=== PATIENT | female | born 1985 | race Caucasian/White ===

== ENCOUNTER 2017-11-09 13:37 | Emergency (ER) | payer OTHER ==
--- OUTSIDE RECORDS SUMMARY | 2017-11-09 14:11 | XMS REPORT ---
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 Payers Type Date Identification Numbers Payment Provider Subscriber Medicaid Expires: Policy Number: [id number] Medicaid ### Marisa Barboza 2016 >11 PayID: [id number] [address] [place] [address] Commercial Policy Number: [id number] Edy Gregg Barboza PayID: [id number] [address] [place] [address] Workers Compensation Effective: 2015 Policy Number: Juan Barboza [id number] Onset: 2015 PayID: [id number] Aleman [address] [place] [address] Problems Date Description Provider Status Onset: 09/14/2017 Contraception care Reece Leonardo PA Active Note: Nexplanon placement and subsequent immediate removal due to extreme pain Onset: 11/02/2017 Infectious mononucleosis Reece Leonardo PA Active Note: h/o Acute infection 2003 Social History Type Date Description Comments Lives With Alone STUDIO 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 Cigarette Use Never Smoked Cigarettes ETOH Use Occasionally consumes alcohol Recreational Drug Use Denies Drug Use Smoking Patient has never smoked Daily Caffeine Occasioanlly Currently Active Patient is currently sexually 2 [employer] active Grade 3rd year of college T [employer] 3 Allergies, Adverse Reactions, Alerts Date Description Reaction Status Severity Comments 02/24/2004 Ceftin active 02/24/2004 Sudafed active 09/27/2005 Serevent active Rash 01/26/2009 Shellfish-derived vomiting and active carries epipen for Products throat closing, this delayed but severe Medications Medication Date Status Form Strength Qnty SIG Indications Ordering Provider Work Note 11/09 Hx patient B27.Andres álvaro was seen Yvonne - in our MD Simran 11/13 office today. Out of work 11/09 thru 11/16/19 18 due to medical conditio n Doxycycline 10/31 Active Capsules 100mg 42caps one tab R53.83 Zeenat Hyclate twice a Yvonne day till MD Simran gone Meloxicam 07/13 Active Tablets 7.5mg 60tabs 1 by M79.1 Zeenat mouth Yvonne twice a MD Simran day for 2-3weeks then as needed Fluticasone 06/15 Active Suspensio 50mcg/Act 1units 1 spray 461.0 Zeenat n b/l Yvonne nostrils MD Simran twice a day, then may wean to 1 spray everyday , until sx resoluti on Proair HFA 04/12 Active Aerosol 108(90Base) 8.500gm 2 puffs J45.20 álvaro mcg/Act every 6 Yvonne hours as MD Simran needed wheezing /sob [june substitu te covered med] Cetirizine HCL 04/12 Active Tablets 10mg 90tabs 1 by Z11.8 Zeenat mouth Yvonne every MD Simran day Epinephrine 08/01 Active Solution 0.3mg/0.3ML 2units as Zeenat Auto-Inje needed Yvonne ct MD Simran Amitiza 10/03 Hx Capsules 24mcg 30caps 1 po up R14.0 Zeenat to tid Yvonne - [Samples MD Simran 10/31 [id number]] Cyclobenzaprine 09/22 Hx Tablets 5mg 14tabs 1/2 -1 M54.5 SUZANNE Chavez at Chanelle - bedtime CAMANDA MS 10/03 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 lasts for 8 hours Sulfamethoxazole 09/22 Hx Tablets 800-160mg 10tabs one tab N39.0 Kathy /Trimethoprim DS by mouth Chanelle - twice a Ruthie RN MS 10/03 day for 5 days Cephalexin 07/26 Hx Tablets 500mg 14tabs 1 by N39.0 Zeenat mouth Yvonne - two MD Simran 08/02 times a day Fluconazole 07/13 Hx Tablets 100mg 10tabs 1 by ZSelma Epperson mouth x1 Yvonne - MD Simran 07/17 Doxycycline 04/14 Hx Capsules 100mg 60caps one tab Shara Chavez Hyclate twice a Chanelle - day till C, RN MS 06/15 gone Doxycycline 04/12 Hx Capsules 100mg 60caps 1 cap by Shara Chavez Monohydrate mouth Chanelle - twice a C, RN MS 04/14 day Fluconazole 04/12 Hx Tablets 100mg 10tabs 1 by Shara Epperson mouth x1 Yvonne - MD Simran 06/15 Goodsense ALL 04/12 Hx Tablets 10mg 90tabs 1 by Shara Epperson, mouth Yvonne - every MD Simran Ciprofloxacin 11/29 Hx Tablets 500mg 20tabs 1 by S91.331A Zeenat, mouth Yvonne - twice a MD Simran 12/13 day total of 14days Amoxicillin 08/01 Hx Tablets 875mg 20tabs 1 by J01.00 Zeenat mouth Yvonne - twice a MD Simran Proventil HFA 08/01 Hx Aerosol 108(90Base) 6.700gm inhale 2 Zeenat mcg/Act puffs Yvonne - into the MD Simran 11/29 lungs every 6 hours Work Note 08/02 Hx pt not S53.132D Zeenat to Yvonne - perform MD Simran 08/31 massage x 1-2 wks Work Note 07/19 Hx patient S53.132A Zeenat, is out Yvonne - 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/02 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 due to medical reasons until evaluate d by orthoped ics Elbow Support 07/19 Hx Misc LEFT S53.132A Zeenat LEFT-RIGHT/Small /2015 elbow Yvonne -Medium - brace MD Simran 08/02 medial collater al ligament support/ strap/hi nge Dx L Elbow MCL sprain Naprosyn 07/12 Hx Tablets 500mg 60tabs 1 by S53.132A Zeenat mouth up Yvonne - to twice MD Simran 08/11 a day as needed Proair 06/04 Hx Aerosol 108(90Base) 1units 2 p four J45.20 Zeenat, Respiclick /2016 mcg/Act times a Yvonne - day as MD Simran 08/01 needed Epipen 2-Ankur 06/04 Hx Solution 0.3mg/0.3ML 2units prn Zeenat Auto-Inje Yvonne - ct MD Simran 08/01 Metronidazole 04/26 Hx Tablets 500mg 14tabs 1 by N76.0 Zeenat mouth Yvonne - every 12 MD Simran Macrobid 04/26 Hx Capsules 100mg 14caps 1 by N30.00 Zeenat, mouth Yvonne - twice a MD Simran Diflucan 04/26 Hx Tablets 100mg 2tabs 1 by N76.0 Zeenat mouth x1 Yvonne - today; MD Simran 05/03 in 1week Amoxicillin 01/06 Hx Tablets 500mg 4 by Diana01.00 Zeenat, mouth x Yvonne - 1 prior MD Simran 01/06 to procedur e Amoxicillin 01/06 Hx Tablets 500mg 30tabs 1 by Diana01.00 Zeenat, mouth Yvonne - three MD Simran 07/12 times day Amoxicillin 07/25 Hx Tablets 875mg 20tabs 1 by Diana01.00 Kathy mouth Chanelle - twice a C, RN MS 01/06 day COMPUTER ENGINEERING 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 Montelukast 07/25 Hx Tablets 10mg 30tabs 1 by Diana01.Louise Chavez Sodium mouth Chanelle - every C, RN MS 04/[address] COHNP [place] Fluticasone 04/25 Hx Suspensio 50mcg/Act 16gm 2 sprays Diana01.00 Zeenat, n in each Yvonne - nostril MD Simran 04/12 Amoxicillin/Clav 03/20 Hx Tablets 875-125mg 20tabs 1 by 461.0 Zeenat mouth Yvonne Potassium - twice a MD Simran Amoxicillin 02/25 Hx Tablets 500mg 30tabs 1 by 461.0 Zeenat mouth Yvonne - markos Khalil MD 04/25 times a day Fluticasone 11/05 Hx Suspensio 50mcg/Act 1units 1 spray 461.0 Johan n b/l Laurita - nostrils MD Alida 04/25 twice a day, then may wean to 1 spray everyday , until sx resoluti on Augmentin 11/05 Hx Tablets 875-125mg 20tabs 1 tab by Johan mouth Laurita - twice a MD Alida 02/25 day x days Azithromycin 10/31 Hx Tablets 250mg 1Pack 2 tabs 461.0 Zeenat day one Yvonne - and 1 MD Simran 10/04 daily till gone School Note 10/[address]0 Zeenat excuse Yvonne - 10/31Simran MD 03/26 11/01, 11/02, 11/03 Amoxicillin 05/02 Hx Tablets 875mg 20tabs 1 po bid Zeenat Yvonne Khalil MD 10/31 Epipen 2-Ankur 05/02 Hx Solution 0.3mg/0.3ML 2units as Zeenat Auto-Inje needed Yvonne - zoie Khalil MD 06/04 Proair HFA 05/02 Hx Aerosol 108(90Base) 1Can 2 p qid 493.00 Zeenat mcg/ac prn Yvonne Khalil MD 03/06 Methylphenidate 05/02 Hx Tablets 10mg 30tabs 1 po qam 314.00 Zeenat, HCL ER may take Yvonne Khalil MD 03/26 prn Lab Testing 05/25 Hx STD Testing HIV testing jose Santiago C, RN MS 06/04 serum COMPUTER ENGINEERING TECHNICIAN gravinde x(qualit ative) Diflucan 05/20 Hx Tablets 150mg 1tabs 1 po qd [place] Chanelle Hendricks RN MS 03/26 COMPUTER ENGINEERING TECHNICIAN Diflucan 12/30 Hx Tablets 150mg 1tabs one tab Zeenat po times Yvonne - one sergio Khalil MD 02/16 Meclizine HCL 07/08 Hx Tablets 25mg 30tabs 1 tab at 386.11 hs for Chanelle - 5-7 Ruthie RN MS 02/16 days. may continue as needed for vertigo. 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 dx muscle soreness /tendoni tis to arms Accupuncture 01/26 Hx Bilateral Eval and 719.43 Kathy, Arm Pain treat Chanelle - for Ruthie RN MS 02/16 tendonit is type pain to bilatera l arms Arm Strap 01/26 Hx DX 2units bilatera 719.43 Tendonitis l arms Chanelle - (Disp 1 Ruthie RN MS 02/16 splint each arm) Cock Up Wrist 01/20 Hx Bilateral wear 719.43 , Splints during Chanelle - the day Ruthie RN MS 02/16 dx tendonit is Accupuncture 01/20 Hx 719.43 Chanelle Hendricks RN MS 01/26 Massage therapy 01/20 Hx 719.43 Chanelle Hendricks RN MS 01/26 Bertha 12/05 Hx Tablets 3-0.02mg 3pks 1 po qd Chanelle Hendricks RN MS 02/16 Nasonex 11/05 Hx Suspensio 50mcg/Act Samples 2 sprays 465.9 n each Noemí Oliveratrmaldonado LAMBERT 01/26 qd Proair HFA 11/05 Hx Aerosol 108(90Base) 8.500gm 2 P qid 493.00 prn Yvonne Khalil MD 05/02 Advair HFA 11/05 Hx Aerosol 115-21mcg/a Sample 2 puffs 493.00 c qd Noemí Olivera MD 02/16 Singulair 11/05 Hx Tablets 10mg Samples 1 po qd 493.00 Trabout Noemí Olivera MD 01/26 Bactrim DS 09/30 Hx Tablets 800-160mg 599.0 Chanelle Hendrikcs RN MS 09/30 Cipro 09/30 Hx Tablets 250mg 6tabs 1 po bid 599.0 x 3 days Chanelle Hendricks RN MS 11/05 Amoxicillin 01/09 Hx Tablets 875mg 20tabs 1 po bid 465.9 Kathy Chanelle Hendricks RN MS 01/19 Robitussin ac 01/09 Hx 120cc 1-2 tsp 465.9 q 4 Chanelle - kacie Hendricks RN MS 01/19 needed for cough Fexofenadine HCL 07/08 Hx Tablets 180mg 30tabs 1 po qd 477.0 prn Yvonne Khalil MD 01/09 Nortriptyline 04/29 Hx Capsules 10mg 30caps 1-2 po 524.60 , qhs Yvonne Khalil MD 01/09 Epipen 2-Ankur 01/05 Hx Device 1:1000 2units prn Zeenat Yvonne Khalil MD 05/02 Zoloft 11/28 Hx Tablets 50mg 30tabs 1 PO qd Zeenat Yvonne Khalil MD 01/09 Singulair 10/11 Hx Tablets 10mg 30tabs 1 PO QHS 388.70 Kathy Chanelle Hendricks RN MS 01/09 Singulair 10/11 Hx Tablets 10mg 30tabs Take 1 Tablet Chanelle Hendricks RN MS 07/08 Bedtime Rhinocort Aqua 10/11 Hx Suspensio 32mcg/Act 1Bottle one Zeenat n spray Yvonne Khalil MD 01/09 nares q am Cortisporin 08/23 Hx Solution 1% Otic 1Bottle 4 GTT 380.10 Zeenat qid X 1 Yvonne Khalil MD 01/09 Flagyl 06/22 Hx Tablets 500mg 21tabs 1 Bidx7 Days Chanelle Hendricks RN MS 06/29 Zoloft 02/20 Hx Tablets 25mg 1 po qd Noemí Olivera MD 11/28 Robitussin A-c 12/19 Hx Syrup 100mg;10mg/ 120ml 10 ML 079.99 Zeenat 5ML qid prn Yvonne Khalil MD 02/20 School Note 12/19 Hx Please 079.99 Zeenat Excuse Yvonne Khalil MD 02/20 Z-Ankur 12/16 Hx Tablets 250mg 1tabs as Dir 466.0 Zeenat Yvonne Khalil MD 02/20 Bactrim DS 09/28 Hx Tablets 160mg;800 14tabs 1 PO bid mg Chanelle Hendricks RN MS 11/04 Mary D 07/29 Hx Tablets 60mg;120 mg 60tabs One bid Zeenat prn Yvonne Khalil MD 02/20 Albuterol 07/29 Hx Aerosol 90mcg/Dose 1Can 2 Puffs Zeenat Inhalation qid prn Yvonne Khalil MD 11/06 Ortho Tri-Cyclen 08/11 Hx Tablets 0.025mg;0.1 1Pack 1 po qd Zeenat, 8 mg Yvonne Khalil MD 12/05 Nasonex 02/23 Hx Suspensio 50mcg 1units 2 Zeenat, Intranasal [place] n Inhalati Yvonne - on Daily MD Simran 02/20 Zoloft Hx Tablets 50mg 90tabs 1 po qd Trab Noemí Olivera MD 02/20 Medications Administered in Office Medication Date Status Form Strength Qnty SIG Indications Ordering Provider PPD Administered Injection Nurses 011 Schedule Raquel Depo Medrol 40 Administered Injection Macaálvaro, [place] 006 Yvonne Khalil MD Immunizations CPT Code Status Date Vaccine Lot # [id number] Given 11/26/2016 Tdap (Adacel) Ages 7 And Above Only 97302 Given 09/24/2007 Tdap (Adacel) Ages 7 And Above Only 14811 Given 09/24/2007 Tdap (Adacel) Ages 7 And Above Only [id number] 08305 Given 07/28/2003 MMR Virus Immunization 02990 Given 12/03/2001 Afluria Or Fluvirin Flu Vac Intramuscular 92440 Given 05/09/2000 Hepatitis B Vac Ped/Adolescent 3 Dose Schedule 35260 Given 11/03/1999 Hepatitis B Vac Ped/Adolescent 3 Dose Schedule Vital Signs Date Vital Result Comment 11/09/2017 Weight 157.50 lb Heart Rate 80 /min BP Systolic 108 mmHg BP Diastolic 70 mmHg Height 65.75 inches 5'5.75" BMI (Body Mass Index) 25.6 kg/m2 10/31/2017 Body Temperature 99.0 F Weight 157.00 lb Height 65.75 inches 5'5.75" BMI (Body Mass Index) 25.5 kg/m2 10/03/2017 Weight 158.38 lb Heart Rate 84 /min BP Systolic 115 mmHg BP Diastolic 72 mmHg Height 65.75 inches 5'5.75" BMI (Body Mass Index) 25.8 kg/m2 Urine Dipstick - Blood NEGATIVE Urine Dipstick - Protein NEGATIVE Urine Dipstick - Glucose NEGATIVE Urine Dipstick - Leukocytes NEGATIVE 09/22/2017 Body Temperature 98.3 F Weight 162.12 lb Heart Rate 70 /min BP Systolic 117 mmHg BP Diastolic 82 mmHg Height 65.75 inches 5'5.75" BMI (Body Mass Index) 26.4 kg/m2 09/19/2017 Body Temperature 97.4 F Weight 162.25 lb Heart Rate 81 /min BP Systolic 125 mmHg BP Diastolic 81 mmHg Height 65.75 inches 5'5.75" BMI (Body Mass Index) 26.4 kg/m2 08/23/2017 Weight 167.38 lb Heart Rate 73 /min BP Systolic 110 mmHg BP Diastolic 73 mmHg Height 65.75 inches 5'5.75" BMI (Body Mass Index) 27.2 kg/m2 08/01/2017 Weight 164.12 lb Heart Rate 65 /min BP Systolic 110 mmHg BP Diastolic 63 mmHg Height 65.75 inches 5'5.75" BMI (Body Mass Index) 26.7 kg/m2 Urine Dipstick - Blood NEGATIVE Urine Dipstick - Protein NEGATIVE Urine Dipstick - Glucose NEGATIVE Urine Dipstick - Leukocytes NEGATIVE 07/26/2017 Weight 165.25 lb Heart Rate 64 /min BP Systolic 122 mmHg BP Diastolic 82 mmHg Height 65.75 inches 5'5.75" BMI (Body Mass Index) 26.9 kg/m2 Urine Dipstick - Blood NEGATIVE Urine Dipstick - Protein NEGATIVE Urine Dipstick - Glucose NEGATIVE Urine Dipstick - Leukocytes NEGATIVE 07/13/2017 Weight 158.50 lb Heart Rate 80 /min BP Systolic 104 mmHg BP Diastolic 70 mmHg Height 65.75 inches 5'5.75" BMI (Body Mass Index) 25.8 kg/m2 04/12/2017 Weight 160.12 lb Heart Rate 78 /min BP Systolic 120 mmHg BP Diastolic 75 mmHg Height 65.75 inches 5'5.75" BMI (Body Mass Index) 26.0 kg/m2 11/29/2016 Body Temperature 99.9 F Weight 160.00 lb Heart Rate 88 /min BP Systolic 138 mmHg BP Diastolic 88 mmHg Height 65.75 inches 5'5.75" BMI (Body Mass Index) 26.0 kg/m2 08/01/2016 Body Temperature 98.7 F Weight 155.00 lb Heart Rate 72 /min BP Systolic 108 mmHg BP Diastolic 60 mmHg Height 65.75 inches 5'5.75" BMI (Body Mass Index) 25.2 kg/m2 08/25/2015 Weight 159.00 lb Heart Rate 79 /min BP Systolic 105 mmHg BP Diastolic 69 mmHg Height 65.75 inches 5'5.75" BMI (Body Mass Index) 25.9 kg/m2 08/03/2015 Weight 157.00 lb Heart Rate 76 /min BP Systolic 122 mmHg BP Diastolic 64 mmHg Height 65.75 inches 5'5.75" BMI (Body Mass Index) 25.5 kg/m2 07/20/2015 Weight 158.38 lb Height 65.75 inches 5'5.75" BMI (Body Mass Index) 25.8 kg/m2 07/13/2015 Weight 155.00 lb Heart Rate 73 /min BP Systolic 116 mmHg BP Diastolic 72 mmHg Height 65.75 inches 5'5.75" BMI (Body Mass Index) 25.2 kg/m2 06/05/2015 Body Temperature 99.2 F Weight 158.00 lb Heart Rate 80 /min BP Systolic 128 mmHg BP Diastolic 74 mmHg Height 65.75 inches 5'5.75" BMI (Body Mass Index) 25.7 kg/m2 04/27/2015 Body Temperature 98.6 F Weight 158.00 lb Heart Rate 71 /min BP Systolic 115 mmHg BP Diastolic 68 mmHg Height 65.75 inches 5'5.75" BMI (Body Mass Index) 25.7 kg/m2 Urine Dipstick - Blood NEGATIVE Urine Dipstick - Protein NEGATIVE Urine Dipstick - Glucose NEGATIVE Urine Dipstick - Leukocytes NEGATIVE 01/06/2015 Body Temperature 100.4 F Weight 153.00 lb Heart Rate 88 /min BP Systolic 110 mmHg BP Diastolic 58 mmHg Height 65.75 inches 5'5.75" BMI (Body Mass Index) 24.9 kg/m2 07/25/2014 Body Temperature 99.8 F Weight 159.00 lb Heart Rate 76 /min BP Systolic 109 mmHg BP Diastolic 73 mmHg Height 65.75 inches 5'5.75" BMI (Body Mass Index) 25.9 kg/m2 06/17/2014 Weight 158.00 lb Heart Rate 72 /min BP Systolic 115 mmHg BP Diastolic 69 mmHg Height 65.75 inches 5'5.75" BMI (Body Mass Index) 25.7 kg/m2 04/25/2014 Body Temperature 99.5 F Weight 159.00 lb Heart Rate 76 /min BP Systolic 120 mmHg BP Diastolic 74 mmHg Height 65.75 inches 5'5.75" BMI (Body Mass Index) 25.9 kg/m2 02/25/2014 Body Temperature 98.9 F Weight 171.00 lb Heart Rate 68 /min BP Systolic 120 mmHg BP Diastolic 66 mmHg Height 65.75 inches 5'5.75" BMI (Body Mass Index) 27.8 kg/m2 11/05/2013 Body Temperature 98.5 F Weight 162.00 lb Heart Rate 83 /min BP Systolic 109 mmHg BP Diastolic 69 mmHg Height 65.75 inches 5'5.75" BMI (Body Mass Index) 26.3 kg/m2 08/15/2013 Body Temperature 98.4 F Weight 163.00 lb Heart Rate 69 /min BP Systolic 112 mmHg BP Diastolic 72 mmHg 03/06/2013 Body Temperature 99.7 F Weight 159.00 lb Heart Rate 124 /min BP Systolic 115 mmHg BP Diastolic 74 mmHg 02/04/2013 Heart Rate 89 /min BP Systolic 146 mmHg BP Diastolic 79 mmHg 11/15/2012 Body Temperature 97.1 F Weight 165.00 lb Heart Rate 74 /min BP Systolic 130 mmHg BP Diastolic 81 mmHg 10/04/2012 Body Temperature 97.5 F Weight 165.00 lb Heart Rate 82 /min BP Systolic 121 mmHg BP Diastolic 74 mmHg 03/26/2012 Body Temperature 99.1 F Weight 166.00 lb Heart Rate 80 /min BP Systolic 112 mmHg BP Diastolic 60 mmHg Height 65.75 inches 5'5.75" BMI (Body Mass Index) 27.0 kg/m2 11/01/2011 Body Temperature 98.0 F Weight 163.00 lb Heart Rate 72 /min BP Systolic 110 mmHg BP Diastolic 60 mmHg Height 65.75 inches 5'5.75" BMI (Body Mass Index) 26.5 kg/m2 05/03/2011 Weight 160.00 lb Heart Rate 76 /min BP Systolic 110 mmHg BP Diastolic 64 mmHg Height 65.75 inches 5'5.75" BMI (Body Mass Index) 26.0 kg/m2 05/17/2010 Weight 155.00 lb Heart Rate 73 /min BP Systolic 119 mmHg BP Diastolic 69 mmHg 02/16/2010 Weight 151.00 lb Heart Rate 88 /min BP Systolic 108 mmHg BP Diastolic 56 mmHg 07/08/2009 Weight 141.00 lb Heart Rate 69 /min BP Systolic 106 mmHg BP Diastolic 65 mmHg 04/29/2009 Weight 143.00 lb Heart Rate 77 /min BP Systolic 118 mmHg BP Diastolic 78 mmHg 01/26/2009 Weight 148.00 lb Heart Rate 77 /min BP Systolic 117 mmHg BP Diastolic 65 mmHg 01/20/2009 Weight 148.00 lb Heart Rate 79 /min BP Systolic 108 mmHg BP Diastolic 62 mmHg 11/05/2008 Body Temperature 98.1 F Weight 147.00 lb Heart Rate 72 /min BP Systolic 113 mmHg BP Diastolic 74 mmHg 09/30/2008 Body Temperature 97.0 F Weight 147.00 lb Heart Rate 67 /min BP Systolic 109 mmHg BP Diastolic 66 mmHg Respiratory Rate 20 /min 01/10/2008 Weight 153.00 lb Heart Rate 77 /min BP Systolic 120 mmHg BP Diastolic 70 mmHg Height 65.75 inches 5'5.75"With Shoes BMI (Body Mass Index) 24.9 kg/m2 07/09/2007 Body Temperature 97.0 F Weight 165.00 lb Heart Rate 58 /min BP Systolic 114 mmHg BP Diastolic 58 mmHg Height 65.75 inches 5'5.75"With Shoes BMI (Body Mass Index) 26.8 kg/m2 04/30/2007 Body Temperature 97.5 F Weight 168.00 lb Heart Rate 68 /min BP Systolic 116 mmHg BP Diastolic 73 mmHg Height 65.75 inches 5'5.75"With Shoes BMI (Body Mass Index) 27.3 kg/m2 Urine Dipstick - Blood NEGATIVE Urine Dipstick - Protein NEGATIVE Urine Dipstick - Glucose NEGATIVE 10/11/2006 Body Temperature 97.6 F Weight 162.00 lb Heart Rate 82 /min BP Systolic 112 mmHg BP Diastolic 74 mmHg Respiratory Rate 22 /min Height 65.75 inches 5'5.75"With Shoes BMI (Body Mass Index) 26.3 kg/m2 08/23/2006 Weight 162.00 lb Heart Rate 74 /min BP Systolic 110 mmHg BP Diastolic 70 mmHg Height 65.75 inches 5'5.75"With Shoes BMI (Body Mass Index) 26.3 kg/m2 06/19/2006 Weight 162.00 lb Heart Rate 88 /min BP Systolic 140 mmHg BP Diastolic 60 mmHg Height 65.75 inches 5'5.75"With Shoes BMI (Body Mass Index) 26.3 kg/m2 02/20/2006 Weight 167.00 lb Heart Rate 60 /min BP Systolic 104 mmHg BP Diastolic 60 mmHg Height 65.75 inches 5'5.75"With Shoes BMI (Body Mass Index) 27.2 kg/m2 Urine Dipstick - Blood NEGATIVE Urine Dipstick - Protein NEGATIVE Urine Dipstick - Glucose NEGATIVE 12/19/2005 Body Temperature 100.3 F Weight 163.00 lb Heart Rate 120 /min BP Systolic 116 mmHg BP Diastolic 60 mmHg 12/16/2005 Body Temperature 97.7 F Weight 164.00 lb Heart Rate 80 /min BP Systolic 120 mmHg BP Diastolic 66 mmHg 11/04/2005 Weight 167.00 lb Heart Rate 76 /min BP Systolic 118 mmHg BP Diastolic 72 mmHg 09/27/2005 Body Temperature 97.9 F Weight 173.00 lb Heart Rate 80 /min BP Systolic 132 mmHg BP Diastolic 70 mmHg 07/29/2005 Weight 178.00 lb Heart Rate 60 /min BP Systolic 118 mmHg BP Diastolic 66 mmHg Height 65 inches 5'5" BMI (Body Mass Index) 29.6 kg/m2 02/24/2004 Urine Dipstick - Blood NEGATIVE Urine Dipstick - Protein NEGATIVE Urine Dipstick - Glucose NEGATIVE 02/24/2004 Weight 161.00 lb Weight Percentile 93rd Heart Rate 86 /min BP Systolic 118 mmHg BP Diastolic 72 mmHg Results Test Date Test Result H/L Range Note Babesia M AB Igg Igm -RL 10/31/2017 Babesia Microti Igg < 1:16 1, 2 Babesia Microti Igm 1:20 1, 3 Ebv Evaluation -RL 10/31/2017 Ebv Vca Igg @ NEGATIVE (Neg) 1 Ebv Vca Igm @ POSITIVE (Neg) 1, 4 Ebv Early Ag Igg @ NEGATIVE (Neg) 1 Ebv Nuclear Ag Igg @ POSITIVE (Neg) 1, 5 Lyme Igm/Igg AB -RL 10/31/2017 Lyme Igm/Igg AB @ NEGATIVE (Neg) 1, 6 E Chaffeensis Abs 10/31/2017 E Chaffeensis Igg <1:64 1, 7 E Chaffeensis Igm < 1:16 1, 8 Laboratory test finding 10/31/2017 Monospot Negative Negative 1 Comprehensive Met Panel-FCM 10/31/2017 Sodium 138 mmol/L 135-146 1, 9 Potassium 5.6 mmol/L High 3.5-5.2 1 Chloride# 102 mmol/L 97-110 1, 10 Carbon Dioxide 26 mmol/L 24-34 1 Glucose 85 mg/dL 70-105 1 BUN 9 mg/dL 6-26 1 Creatinine 0.6 mg/dL 0.5-1.4 1 Calcium 9.7 mg/dL 8.5-10.2 1 Total Protein 7.8 g/dL 6.0-8.0 1 Albumin 4.8 g/dL 3.6-4.9 1 Globulin 3.0 g/dL 2.0-3.5 1 A/G Ratio 1.6 Ratio 1.0-2.2 1 Total Bilirubin 0.5 mg/dL 0.1-1.3 1 Alkaline Phosphatase 30 U/L 24-140 1 Alt 14 U/L 3-42 1 Ast 16 U/L 8-42 1 Tory Egfr >60 >60 1, 11 Non Tory Egfr >60 >60 1, 12 Anion Gap 10 mmol/L 5-15 1, 13 Laboratory test finding 10/31/2017 1 Strep Screen (In-House) neg Negative Laboratory test finding 08/23/2017 [facility] Pap SEE NOTE 14 Affirm 08/23/2017 Trichomonas Vaginalis Negative Negative Gardnerella Vaginalis Negative Negative Corin Species Negative Negative GC/Chlamydia By Dna Probe 08/23/2017 Chlamydia by Dna Probe NEGATIVE Negative GC by Dna Probe NEGATIVE Negative HIV Combo By Eia 08/01/2017 [employer] HIV Combo NON REACTIVE Non Reactive 1 Affirm 08/01/2017 Trichomonas Vaginalis Negative Negative 1 Gardnerella Vaginalis Negative Negative 1 Corin Species Negative Negative 1 Treponema 08/01/2017 Treponema Igg/Igm NEGATIVE (Neg) 1, 15 Igg/Igm-RL @ Laboratory test 07/26/2017 Urine Culture Microbiology res 16 finding <SEE NOTE> GC/Chlamydia By Dna 07/26/2017 Chlamydia by Dna NEGATIVE Negative Probe Probe GC by Dna Probe NEGATIVE Negative Laboratory test 07/26/2017 HCG,Quant Preg <1 mU/mL 17 finding Laboratory test 08/15/2013 Urine Culture Microbiology res <SEE 18 finding NOTE> Laboratory test 05/03/2011 [facility] Pap SEE NOTE 19 finding Laboratory test 05/03/2011 TSH 1.19 uIU/mL 0.34-5.60 1 finding CBC With Auto Diff 05/03/2011 WBC 8.5 K/uL 4.1-11.0 1 RBC 3.83 M/uL Low 4.00-5.40 1 Hemoglobin 12.7 gm/dL 12.0-16.0 1 Hematocrit 37.3 % 36.0-47.0 1 MCV 97.4 fL High 80.0-97.0 1 MCH 33.2 pg High 27.0-32.0 1 MCHC 34.1 g/dL 32.0-36.0 1 RDW 12.9 % 11.5-14.5 1 PLT Count 286 K/ul 140-400 1 Neutrophil 67.9 % 35.0-75.0 1 Lymphocyte 20.4 % 16.0-52.0 1 Monocyte 8.3 % 2.0-10.0 1 Eosinophil 2.7 % 0.0-5.0 1 Basophil 0.7 % 0.0-4.0 1 Abs Neutrophils 5.8 K/uL 2.1-8.0 1 Abs Lymphocytes 1.7 K/uL 0.8-5.5 1 Abs Monocytes 0.7 K/uL 0.1-1.0 1 Abs Eosinophils 0.2 K/uL 0.0-0.5 1 Abs Basophils 0.1 K/uL 0.0-0.3 1 GC/Chlamydia By Dna Probe 05/03/2011 Chlamydia by Dna Probe NEGATIVE Negative 1 GC by Dna Probe NEGATIVE Negative 1 Laboratory test finding 05/03/2011 HIV 1/2 AB NEGATIVE (Neg) 1, 20 Laboratory test finding 05/17/2010 GC by Dna Probe NEGATIVE Negative 21 Chlamydia by Dna Probe Negative Negative 21 Laboratory test finding 05/17/2010 [facility] Pap SEE NOTE 21, 22 Stool Panel 10/21/2009 Ova And Parasites - [place] (SEE NOTE) 23, 24 Giardia Antigen-[place] (SEE NOTE) 23, 25 Culture (Stool) Enteric 10/21/2009 Enteric Pathogen Culture - (SEE NOTE) 23, 26 Pathog [place] Specimen Description - [place] N/A 23 Special Requests - [place] N/A 23 Result - [place] N/A 23 Report Status - [place] N/A 23 C Diff Toxin B/PCR -LA 10/21/2009 C Diff Toxin B/PCR -[place] (SEE NOTE) 23 , 27 Specimen Description - [place] N/A 23 Special Requests - [place] N/A 23 Result - [place] N/A 23 Report Status - [place] N/A 23 Celiac Disease Panel -LA 07/09/2009 Gliadin Peptide Iga 4 units 0-19.999 28 Gliadin Peptide Igg 3 units 0-19.999 29 Transglutaminase Iga -LA 6 units 0-19.999 30 Transglutaminase Igg -LA 3 units 0-19.999 31 Iga - [place] 294 mg/dL 71-374 CBC With Auto Diff 07/08/2009 WBC 4.3 K/ul 4.0-10.9 32 RBC 3.84 M/ul Low 4.20-5.40 32 Hemoglobin 12.6 GM/dl 12.5-16.0 32 Hematocrit 36.3 % 36.0-47.0 32 MCV 94.4 FL 80.0-97.0 32 MCH 32.8 pg High 27.0-31.0 32 MCHC 34.7 g/dL 32.0-36.0 32 RDW 12.9 % 11.5-14.5 32 Platelet Count 227 K/ul 140-440 32 Neutrophils 46.3 % Low 50-70 32 Lymphocytes 37.1 % 20-44 32 Monocytes 7.8 % 2-9 32 Eosinophil 7.9 % High 0-4 32 Basophil 0.9 % 0-2 32 Absolute Neutrophils 2.0 K/ul Low 2.05-7.63 32 Absolute Lymphocytes 1.6 K/ul 0.8-4.8 32 Absolute Monocytes 0.3 K/ul 0.1-1.0 32 Absolute Eosinophils 0.3 K/ul 0.1-0.5 32 Absolute Basophils 0.0 K/ul 0.0-0.3 32 Hematology Comment (Comm2) N/A 32 Basic (BMP) 07/08/2009 Sodium 142 mmol/L 135-144 32 Potassium 5.4 mmol/L High 3.6-5.2 32, 33 Chloride 105 mmol/L 97-110 32 Carbon Dioxide 30 mmol/L 23-32 32 Glucose 91 mg/dL 70-105 32 BUN 5 mg/dL Low 6-22 32 Creatinine 0.7 mg/dL 0.5-1.3 32 BUN/CR 7 Ratio 32 Anion Gap 12 mmol/L 8-16 32 Calcium 10.0 mg/dL 8.6-10.2 32 GFR Calculation > 60 mL/min 60-175 32, 34 GFR For > 60 mL/min 60-175 32, 35 Laboratory test finding 07/08/2009 Lipase 24 U/L 22-51 32 Amylase 56 U/L 36-128 32 Magnesium 2.1 mg/dL 1.8-2.5 32 CBC With Auto Diff 04/29/2009 WBC 4.6 K/ul 4.0-10.9 36 RBC 3.89 M/ul Low 4.20-5.40 36 Hemoglobin 12.6 GM/dl 12.5-16.0 36 Hematocrit 36.9 % 36.0-47.0 36 MCV 95.0 FL 80.0-97.0 36 MCH 32.4 pg High 27.0-31.0 36 MCHC 34.1 g/dL 32.0-36.0 36 RDW 12.8 % 11.5-14.5 36 Platelet Count 234 K/ul 140-440 36 Neutrophils 42.4 % Low 50-70 36 Lymphocytes 40.5 % 20-44 36 Monocytes 7.6 % 2-9 36 Eosinophil 9.1 % High 0-4 36 Basophil 0.4 % 0-2 36 Absolute Neutrophils 2.0 K/ul Low 2.05-7.63 36 Absolute Lymphocytes 1.9 K/ul 0.8-4.8 36 Absolute Monocytes 0.3 K/ul 0.1-1.0 36 Absolute Eosinophils 0.4 K/ul 0.1-0.5 36 Absolute Basophils 0.0 K/ul 0.0-0.3 36 Hematology Comment (Comm2) N/A 36 Laboratory test finding 04/29/2009 TSH 1.12 uIU/ml 0.34-5.60 36 Iron Panel 04/29/2009 Iron, Total 162 g/dL 28-170 36 Transferrin 287 mg/dL 192-382 36 Tibc (Calc) 402 g/dL 261-478 36 % Saturation (Calc) 40.3 % 13.0-45.0 36 Laboratory test finding 04/29/2009 Vitamin D, 25 Hydroxy 60 ng/mL 31-100 36 Food Allergy Panel 04/29/2009 Peanut Conc 0.100 36 Peanut Class 1 CLASS 36 Soybean Conc 0.060 36 Soybean Class 0/1 CLASS CLASS 36 Milk Conc 0.230 36 Milk Class 2 CLASS 36 Redwood Conc 0.200 36 Redwood Class 2 CLASS 36 Shrimp Conc <0.05 36 Shrimp Class 0 CLASS 36 Egg Whole Conc 0.120 36 Egg Whole Class 1 CLASS 36 Tomato Conc <0.05 36 Tomato Class 0 CLASS 36 Wheat Conc 0.160 36 Wheat Class 2 CLASS 36 Chocolate Conc <0.05 36 Chocolate Class 0 CLASS 36 Chester Conc <0.05 36 Chester Class 0 CLASS 36 Basic (BMP) 04/29/2009 Sodium 142 mmol/L 135-144 36 Potassium 4.1 mmol/L 3.6-5.2 36 Chloride 104 mmol/L 97-110 36 Carbon Dioxide 27 mmol/L 23-32 36 Glucose 79 mg/dL 70-105 36 BUN 4 mg/dL Low 6-22 36 Creatinine 0.6 mg/dL 0.5-1.3 36 BUN/CR 7 Ratio 36 Anion Gap 15 mmol/L 8-16 36 Calcium 9.9 mg/dL 8.6-10.2 36 GFR Calculation > 60 mL/min 60-175 36, 37 GFR For > 60 mL/min 60-175 36, 38 Laboratory test finding 04/29/2009 Hemoglobin A1c 5.7 % 4.1-6.5 36 Allergy Interpretation SEE NOTE 36, 39 Laboratory test finding 01/26/2009 Surepath Pap - LA (SEE NOTE) 40, 41 Chlamydia And GC 01/26/2009 Chlamydia By Dna NEGATIVE Negative 40 Probe GC By Dna Probe NEGATIVE Negative 40 CBC With Auto Diff 04/30/2007 WBC 6.4 K/ul 4.0-10.9 42 RBC 4.17 M/ul Low 4.20-5.40 42 Hemoglobin 13.4 GM/dl 12.5-16.0 42 Hematocrit 39.4 % 36.0-47.0 42 MCV 94.5 FL 80.0-97.0 42 MCH 32.1 pg High 27.0-31.0 42 MCHC 33.9 g/dL 32.0-36.0 42 RDW 11.4 % Low 11.5-14.5 42 Platelet Count 300 K/ul 140-440 42 Neutrophils 47.2 % Low 50-70 42 Lymphocytes 37.3 % 20-44 42 Monocytes 7.2 % 2-9 42 Eosinophil 8.3 % High 0-4 42 Basophil 0.0 % 0-2 42 Absolute Neutrophils 3.0 K/ul 2.05-7.63 42 Absolute Lymphocytes 2.4 K/ul 0.8-4.8 42 Absolute Monocytes 0.5 K/ul 0.1-1.0 42 Absolute Eosinophils 0.5 K/ul 0.1-0.5 42 Absolute Basophils 0.0 K/ul Low 0.1-0.3 42 CMP 04/30/2007 Sodium 138 mmol/L 135-144 42 Potassium 4.3 mmol/L 3.6-5.2 42 Chloride 102 mmol/L 97-110 42 Carbon Dioxide 27 mmol/L 23-33 42 Glucose 94 mg/dL 70-105 42 BUN 6 mg/dL 6-22 42 Creatinine 0.5 mg/dL 0.5-1.3 42 BUN/CR 12 Ratio 12.0-20.0 42 Calcium 9.7 mg/dL 8.6-10.2 42 Total Protein 7.4 g/dL 5.8-7.8 42 Albumin 4.2 g/dL 3.5-4.8 42 Globulin 3.2 g/dL 2.0-3.5 42 A/G Ratio 1.3 Ratio 1.0-2.2 42 Total Bilirubin 0.6 mg/dL 0.3-1.2 42 Alkaline Phosphatase 30 U/L 24-140 42 Alt 21 U/L 4-45 42 Ast 27 U/L 12-40 42 Anion Gap 13 mmol/L 8-16 42 GFR Calculation > 60 mL/min 42, 43 GFR For > 60 mL/min 42, 44 Laboratory test 04/30/2007 TSH 1.04 uIU/ml 0.34-5.60 42 finding Laboratory test 02/20/2006 Papsmear, Thinprep SEE REFERENCE LA 45 finding - LA <SEE NOTE> Chlamydia And GC 02/20/2006 GC By Dna Probe NEGATIVE Negative Chlamydia By Dna Probe NEGATIVE Negative CBC With Auto Diff 12/19/2005 WBC 6.1 K/ul 4.0-10.9 RBC 3.96 M/ul Low 4.20-5.40 Hemoglobin 12.5 GM/dl 12.5-16.0 Hematocrit 36.2 % 36.0-47.0 MCV 91.2 FL 80.0-97.0 MCH 31.5 pg High 27.0-31.0 MCHC 34.5 g/dL 32.0-36.0 RDW 12.2 % 11.5-14.5 Platelet Count 276 K/ul 140-440 Diff For Manual CBC 12/19/2005 Band 1 % Low 2-6 Neutrophil 81 % High 50-70 Lymphocyte 9 % Low 20-44 Monocyte 5 % 2-9 Eosinophil 3 % 0-4 Basophil 1 % 0-2 Platelet Estimate NORMAL RBC Morphology NORMAL Urinalysis -RL 09/27/2005 Color -LA YELLOW Appearance -LA HAZY Spec Grav Urine 1.010 (1.003-1.030) PH Urine -LA 6 (5.0-7.5) Leukocyte Esterase -LA 2+ (Neg) Nitrite -LA POSITIVE (Neg) Protein Urine-LA NEGATIVE (Neg) Glucose Urine -LA NEGATIVE (Neg) Ketone Urine -LA NEGATIVE (Neg) Urobilinogen -LA NORMAL (Norm) Bilirubin Urine -LA NEGATIVE (Neg) Blood Urine -LA TRACE (Neg) Urine Microscopic, Only -RL 09/27/2005 Urine WBC -LA * 50-100 /HPF (0-5) Urine RBC -LA 0-2 /HPF (0-2) Epithelial Cells -LA 1+ /HPF Bacteria -LA 1+ /HPF Laboratory test finding 01/07/2003 Hemoglobin A1c 5.4 % 4.1-6.5 CBC 01/07/2003 WBC 6.4 K/ul 4.5-13.5 RBC 3.94 M/ul 3.90-5.30 Hemoglobin 12.4 GM/dl Low 12.5-15.0 Hematocrit 35.5 % Low 36.0-48.0 MCV 90.2 FL 80.0-95.0 MCH 31.4 pg 26.0-32.0 MCHC 34.8 g/dL 31.0-36.0 RDW 11.6 % 11.5-14.5 Platelet Count 320 K/ul 140-440 Neutrophils 50.2 % 50-70 Lymphocytes 34.4 % 20-44 Monocytes 9.0 % 2-9 Eosinophil 5.8 % High 0-4 Basophil 0.6 % 0-2 Absolute Neutrophils 3.2 K/ul 2.05-7.63 Absolute Lymphocytes 2.2 K/ul 0.8-4.8 Absolute Monocytes 0.6 K/ul 0.1-1.0 Absolute Eosinophils 0.4 K/ul 0.1-0.5 Absolute Basophils 0.0 K/ul Low 0.1-0.3 PT + PTT (On Therapy) 01/07/2003 PT (On Therapy) 10.8 seconds 9.5-12.3 PTT (Activated Partial Thromboplastin Time, Aptt) 27.7 seconds 23.0-32.0 Inr 1.0 2.0-3.0 46 Diff For Manual CBC 12/18/2002 RBC Morphology NORMAL Neutrophil 19 % Low 50-70 Lymphocyte 55 % High 20-44 Monocyte 5 % 2-9 Basophil 1 % 0-2 Atypical Lymphs 20 % Platelet Estimate NORMAL CBC 12/18/2002 WBC 10.9 K/ul 4.5-13.5 RBC 4.31 M/ul 3.90-5.30 Hemoglobin 13.3 GM/dl 12.5-15.0 Hematocrit 40.1 % 36.0-48.0 MCV 93.2 FL 80.0-95.0 MCH 31.0 pg 26.0-32.0 MCHC 33.3 g/dL 31.0-36.0 RDW 12.1 % 11.5-14.5 Platelet Count 221 K/ul 140-440 Laboratory test finding 12/18/2002 Monospot POSITIVE Laboratory test finding 11/23/2001 Cholesterol 153 mg/dL 50-199 CMP 11/23/2001 Sodium 136 mmol/L 135-145 Potassium 4.2 mmol/L 3.6-5.0 Chloride 104 mmol/L 98-107 Carbon Dioxide 28 mmol/L 21-31 Glucose 87 mg/dL 70-105 BUN 13 mg/dL 7-18 Creatinine 0.7 mg/dL 0.6-1.3 BUN/CR 18.57 RATIO 12.0-20.0 Calcium 9.4 mg/dL 8.4-10.2 Albumin 4.7 g/dL 3.5-5.0 Globulin 3.20 g/dL 2.7-4.3 A/G Ratio 1.47 RATIO 1.0-2.2 Total Bilirubin 0.6 mg/dL 0.2-1.0 Ast 21 U/L 10-42 Alt 14 U/L 10-40 Alkaline Phosphatase 47 U/L 32-92 Laboratory test finding 11/23/2001 Hemoglobin A1c 5.6 % 4.1-6.5 TSH 1.82 uIU/ml 0.50-6.00 CBC 11/23/2001 WBC 8.7 K/ul 4.1-10.9 RBC 4.03 M/ul Low 4.2-6.3 Hemoglobin 12.5 GM/dl 12.0-16.0 Hematocrit 38.1 % 37.0-51.0 MCV 94.4 FL 80-97 MCH 31.0 pg 26.0-32.0 MCHC 32.9 g/dL 31.0-36.0 RDW 11.8 % 11.5-14.5 Platelet Count 306 K/ul 140-440 Neutrophils 63.3 % 50-70 Lymphocytes 23.8 % 20-44 Monocytes 8.3 % 2-9 Eosinophil 3.6 % 0-4 Basophil 1.0 % 0-2 Absolute Neutrophils 5.5 K/ul 2.05-7.63 Absolute Lymphocytes 2.1 K/ul 0.8-4.8 Absolute Monocytes 0.7 K/ul 0.1-1.0 Absolute Eosinophils 0.3 K/ul 0.1-0.5 Absolute Basophils 0.1 K/ul 0.1-0.3 1 This sample is drawn by:NB. 2 < 1:16 Reference range: < 1:16 INTERPRETIVE INFORMATION: Babesia microti Antibody, IgG Less than 1:16 ........ Negative - No significant level of detectable Babesia IgG antibodies. 1:16 .................. Equivocal - Repeat testing in 10-14 days may be helpful. Greater than 1:16 ..... Positive - IgG antibodies to Babesia detected which may indicate a current or previous infection. Test developed and characteristics determined by [facility]. See Compliance Statement A: [email or web address] 1:20 Reference range: <1:20 INTERPRETIVE INFORMATION: Babesia microti Antibody, IgM Less than 1:20 ........ Negative - No significant level of detectable Babesia IgM antibodies. 1:20 .................. Equivocal - Repeat testing in 10-14 days may be helpful. Greater than 1:20 ..... Positive - IgM antibodies to Babesia detected which may indicate a current or recent infection. Test developed and characteristics determined by [facility]. See Compliance Statement A: [facility]/CS Performed by [facility], [address] [place] [id number] [email or web address], Phani Rosas MD, Lab. Director Unless otherwise specified, testing performed by [facility] [employer] [place] [address] 4 May indicate a current or recent infection. 5 May indicate a current or previous infection. Unless otherwise specified, testing performed by [facility] [place] [address] 6 A Negative serologic test for Lyme Disease indicates no serologic evidence of infection with B burgdorferi at the time this specimen was collected. A repeat specimen should be collected in 2 to 4 weeks if clinically indicated. Unless otherwise specified, testing performed by [facility] [place] [address] 7 <1:64 Reference range: <1:64 INTERPRETIVE INFORMATION: Ehrlichia Chaffeensis IgG Ab Less than 1:64 ....... Negative: No significant level of Ehrlichia chaffeensis IgG antibody detected. 1:64-1:128 ........... Equivocal: Questionable presence of Ehrlichia chaffeensis IgG antibody detected. Repeat testing in 10-14 days may be helpful. 1:256 or greater ..... Positive: Presence of IgG antibody to Ehrlichia chaffeensis detected, suggestive of current or past infection. Seroconversion between acute and convalescent sera is considered strong evidence of recent infection. The best evidence for infection is a significant change (fourfold difference in titer) on two appropriately timed specimens, where both tests are done in the same laboratory at the same time. Test developed and characteristics determined by [facility]. See Compliance Statement B: [facility]/itzat 8 < 1:16 Reference range: < 1:16 INTERPRETIVE INFORMATION: Ehrlichia Chaffeensis IgM Ab Less than 1:16 ....... Negative - No significant level of Ehrlichia chaffeensis IgM antibody detected. 1:16 or greater ...... Positive - Presence of IgM antibody to Ehrlichia chaffeensis detected, suggestive of current or recent infection. While the presence of IgM antibodies suggest current or recent infection, low levels of IgM antibodies may occasionally persist for more than 12 months post-infection. A single IgM result should be interpreted with caution. Test developed and characteristics determined by [facility]. See Compliance Statement B: [facility]/CS Performed by [facility], [address] [place] [id number] [email or web address], Phani Rosas MD, Lab. Director Unless otherwise specified, testing performed by [facility] [facility] [address] [id number] 9 Updated reference range on new analyzer 10 Updated reference range on new analyzer 11 Concerning GFR Guidelines for Americans: Normal function or mild renal disease, if clinically at risk: >/=60 mL/min Moderately decreased: 30-59 Severely decreased: 15-29 Renal failure: <15 12 Concerning GFR Guidelines: Normal function or mild renal disease, if clinically at risk: >/=60 mL/min Moderately decreased: 30-59 Severely decreased: 15-29 Renal failure: <15 Glomerular Filtration Rate (GFR) is estimated based on the MDRD equation, which assumes a steady state for creatinine as recommended by the National Kidney Disease Education Program in conjunction with the National Institutes of Health and the National Kidney Foundation. Clinical conditions in which it may be necessary to measure GFR by using clearance methods include extremes of age and body size, severe malnutrition or obesity, diseases of skeletal muscle, paraplegia or quadriplegia, vegetarian diet, rapidly changing kidney function, and calculation of the dose of potentially toxic drugs that are excreted by the kidneys. 13 Updated Reference Range 14 LABORATORY [employer]. [facility] [place] [address] CYTOLOGY REPORT Source of Specimen(s): [facility] Vaginal/ Cervical/ Endocervical Pap Smear - One Vial Date of Last Menstrual Period: None Provided Specimen Adequacy SATISFACTORY FOR EVALUATION PRESENCE OF ENDOCERVICAL/TRANSFORMATION ZONE COMPONENT General Categorization NEGATIVE FOR INTRAEPITHELIAL LESION OR MALIGNANCY Interpretation NEGATIVE FOR INTRAEPITHELIAL LESION OR MALIGNANCY Reported: 08/25/2017 11:50 Electronically Signed Out By Yaquelin CHUA([facility]) lgs ICD9 Code: N94.2 CPT code: A: [id number] Unless otherwise specified, testing performed by [facility] [address] [place] [id number] 15 Unless otherwise specified, testing performed by [employer] [facility] [address] [place] [address] 16 Microbiology results SOURCE Random urine FINAL RESULT No growth 17 INTERPRETATION: LESS THAN 6 NEGATIVE 6 - 10 BORDERLINE (SUGGEST REPEAT IN 48 HOURS) APPROX HCG RANGE WEEKS POST LMP 11 - 130 3 - 4 WEEKS 75 - 2600 4 - 5 WEEKS 850 - 39936 5 - 6 WEEKS 4000 - 277911 6 - 7 WEEKS 49198 - 713565 7 - 12 WEEKS 81020 - 900435 12 - 16 WEEKS 1400 - 85965 16 - 29 WEEKS 940 - 64987 29 - 41 WEEKS Unless otherwise specified, testing performed by [facility] [employer] [address] [place] [id number] 18 Microbiology results SOURCE URINE FINAL RESULT No growth 19 [facility]. [address] [place] [address] GYNECOLOGIC CYTOLOGY REPORT Accession Number: [id number] Source of Specimen(s): A: [facility] Vaginal/ Cervical/ Endocervical Pap Smear - One Vial Clinical Diagnosis and History: Date of Last Menstrual Period: None Provided Other Clinical Conditions: REFLEX TO DIGENE HPV ASSAY IF RESULTS OF THIS PAP ARE ASCUS Specimen Adequacy Satisfactory for evaluation Presence of endocervical/transformation zone component General Categorization Negative for intraepithelial lesion or malignancy Interpretation NEGATIVE FOR INTRAEPITHELIAL LESION OR MALIGNANCY Reported: 05/05/2011 Electronically Signed Out By Terra Bloom CT([facility]) [facility] Pathology, P.CBong oliveros Unless otherwise specified, testing performed by [facility] [address] [place] [id number] 20 THIS INFORMATION HAS BEEN DISCLOSED TO YOU FROM CONFIDENTIAL RECORDS WHICH ARE PROTECTED BY STATE LAW. STATE LAW PROHIBITS YOU FROM MAKING ANY FURTHER DISCLOSURE OF THIS INFORMATION WITHOUT THE SPECIFIC WRITTEN CONSENT OF THE PERSON TO WHOM IT PERTAINS, OR OTHERWISE PERMITTED BY LAW. Unless otherwise specified, testing performed by [employer] [facility] [address] [address] 21 This sample is drawn by:JULIUS 22 [employer] [facility]. 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 Acute inflammatory cells Reported: 05/19/2010 Electronically Signed Out By Yisel CHUA([facility]) [facility] ac Unless otherwise specified, testing performed by [facility] [address] [place] [id number] 23 This sample is drawn by: RAJAN 24 SPECIMEN DESCRIPTION STOOL SPECIAL REQUESTS NONE RESULT NO OVA OR PARASITES SEEN THE ROUTINE OVA AND PARASITE EXAM DOES NOT INCLUDE CRYPTOSPORIDIUM, CYCLOSPORA, ISOSPORA OR MICROSPORIDIA. THESE ORGANISMS HAVE BEEN IMPLICATED ETIOLOGIC AGENTS IN IMMUNOSUPPRESSED PATIENTS (ESPECIALLY HIV) AND RARELY AGENTS OF TRAVELER'S DIARRHEA OR COMMUNITY OUTBREAKS IN THE [place] IF EVALUATION FOR THESE ORGANISMS IS A CLINICAL CONCERN, A SEPARATE ORDER FOR COCCIDIA (INCLUDES CRYPTOSPORIDIUM, CYCLOSPORA AND ISOSPORA) AND/OR MICROSPORIDIUM MUST BE PLACED. SPECIMENS ARE SAVED IN FIXATIVE AND HELD FOR 7 DAYS FROM THE REPORT DATE TO ALLOW THESE TESTS TO BE ADDED ON. REPORT STATUS FINAL 10/22/2009 Unless otherwise specified, testing performed by [employer] [facility] [address] [place] [id number] 25 SPECIMEN DESCRIPTION STOOL SPECIAL REQUESTS NONE RESULT NEGATIVE FOR GIARDIA ANTIGEN BY IMMUNOASSAY REPORT STATUS FINAL 10/22/2009 Unless otherwise specified, testing performed by [facility] [address] [place] [id number] 26 SPECIMEN DESCRIPTION STOOL SPECIAL REQUESTS NONE CULTURE RESULTS NEGATIVE FOR SALMONELLA, SHIGELLA, AND E COLI O1 57 BY CULTURE. NEGATIVE FOR CAMPYLOBACTER COLI/JEJUNI BY IMMUNO ASSAY. NO SHIGA LIKE (CHAPO) TOXIN DETECTED BY IMMUNOASS AY. REPORT STATUS FINAL 10/23/2009 Unless otherwise specified, testing performed by [employer] [address] [address] 27 SPECIMEN DESCRIPTION STOOL SPECIAL REQUESTS NONE RESULT NEGATIVE: CLOSTRIDIUM DIFFICILE TOXIN B GENE NO T DETECTED BY PCR. REPORT STATUS FINAL 10/22/2009 Unless otherwise specified, testing performed by [employer] [address] [address] 28 INTERPRETATION OF RESULTS: < 20 UNITS NEGATIVE 20-30 UNITS WEAK POSITIVE > 30 UNITS MODERATE TO STRONG POSITIVE The following result was obtained with the INOVA QUANTA Lite Gliadin IgA II. Results obtained with other manufacturers' assay methods may not be used interchangeably. The magnitude of the reported IgA level cannot be correlated to an endpoint titer. 29 INTERPRETATION OF RESULTS: < 20 UNITS NEGATIVE 20-30 UNITS WEAK POSITIVE > 30 UNITS MODERATE TO STRONG POSITIVE The following result was obtained with the INOVA QUANTA Lite Gliadin IgG II. Results obtained with other manufacturers' assay methods may not be used interchangeably. The magnitude of the reported IgG levels cannot be correlated to an endpoint titer. 30 INTERPRETATION OF RESULTS: < 20 UNITS NEGATIVE 20-30 UNITS WEAK POSITIVE > 30 UNITS MODERATE TO STRONG POSITIVE The following result was obtained with the INOVA QUANTA Lite h-tTG IgA HEMANTH. Results obtained with other manufacturers' assay methods may not be used interchangeably. The magnitude of the reported IgA level cannot be correlated to an endpoint titer. Performed at [address] [place] [address] 31 INTERPRETATION OF RESULTS: < 20 UNITS NEGATIVE 20-30 UNITS WEAK POSITIVE > 30 UNITS MODERATE TO STRONG POSITIVE The following result was obtained with the INOVA QUANTA Lite h-tTG IgG HEMANTH. Results obtained with other manufacturers' assay methods may not be used interchangeably. The magnitude of the reported IgG levels cannot be correlated to an endpoint titer. Performed at [address] [place] [address] Unless otherwise specified, testing performed by [facility] [address] [address] 32 This sample is drawn by:CT 33 NO VISIBLE HEMOLYSIS The difference between the most recent result of 4.1 and the current result of 5.4 exceeds the absolute delta value of 0.5 as defined for this test. 34 Concerning GFR GUIDELINES: Normal Function or Mild Renal Disease, if clinically at risk: >/=60mL/min Moderately decreased: 30-59 Severely decreased: 15-29 Renal Failure: <15 Glomerular Filtration Rate (GFR) is estimated based on the MDRD equation, which assumes a steady state for creatinine as recommended by the National Kidney Disease Education Program in conjunction with the National Institutes of Health and the National Kidney Foundation. Clinical conditions in which it may be necessary to measure GFR by using clearance methods include extremes of age and body size, severe malnutrition or obesity, diseases of skeletal muscle, paraplegia or quadriplegia, vegetarian diet, rapidly changing kidney function, and calculation of the dose of potentially toxic drugs that are excreted by the kidneys. 35 Concerning GFR GUIDELINES: Normal Function or Mild Renal Disease, if clinically at risk: >/=60mL/min Moderately decreased: 30-59 Severely decreased: 15-29 Renal Failure: <15 36 FASTING This sample is drawn by: RAJAN 37 Concerning GFR GUIDELINES: Normal Function or Mild Renal Disease, if clinically at risk: >/=60mL/min Moderately decreased: 30-59 Severely decreased: 15-29 Renal Failure: <15 Glomerular Filtration Rate (GFR) is estimated based on the MDRD equation, which assumes a steady state for creatinine as recommended by the National Kidney Disease Education Program in conjunction with the National Institutes of Health and the National Kidney Foundation. Clinical conditions in which it may be necessary to measure GFR by using clearance methods include extremes of age and body size, severe malnutrition or obesity, diseases of skeletal muscle, paraplegia or quadriplegia, vegetarian diet, rapidly changing kidney function, and calculation of the dose of potentially toxic drugs that are excreted by the kidneys. 38 Concerning GFR GUIDELINES: Normal Function or Mild Renal Disease, if clinically at risk: >/=60mL/min Moderately decreased: 30-59 Severely decreased: 15-29 Renal Failure: <15 39 CLASS CONC IU/ml INTERPRETATION Negative <0.05 Negative 0/1 0.05 - 0.08 Equivocal 1 0.08 - 0.15 Positive 2 0.15 - 0.50 Positive 3 0.50 - 2.50 Positive 4 2.50 - 12.50 Positive 5 12.50 - 62.50 Positive 6 >62.50 Positive 40 This sample is drawn by: DB 41 LABORATORY [employer] [facility] [employer] [facility]. Formerly [facility], [facility] [place] [address] GYNECOLOGIC CYTOLOGY REPORT Accession Number: [id number] Source of Specimen(s): A: Sure[facility] Vaginal / Cervical Pap Smear - One Vial Clinical Diagnosis and History: Date of Last Menstrual Period: 3 wks ago Other Clinical Conditions: Last Pap Smear: 1 yr normal REFLEX TO DIGENE HPV ASSAY IF RESULTS OF THIS PAP ARE ASCUS Specimen Adequacy Satisfactory for evaluation Presence of endocervical/transformation zone component General Categorization Negative for intraepithelial lesion or malignancy Interpretation NEGATIVE FOR INTRAEPITHELIAL LESION OR MALIGNANCY Acute inflammatory cells 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 Reported: 01/28/2009 Electronically Signed Out By Terra CHUA([facility]) [facility] Lindsey Campbell ICD9 Code: V72.31 Unless otherwise specified, testing performed by [facility] [facility] [address] [place] [address] 42 CARLOS 530 43 Concerning GFR GUIDELINES: Normal Function or Mild Renal Disease, if clinically at risk: >/=60mL/min Moderately decreased: 30-59 Severely decreased: 15-29 Renal Failure: <15 Glomerular Filtration Rate (GFR) is estimated based on the MDRD equation, which assumes a steady state for creatinine as recommended by the National Kidney Disease Education Program in conjunction with the National Institutes of Health and the National Kidney Foundation. Clinical conditions in which it may be necessary to measure GFR by using clearance methods include extremes of age and body size, severe malnutrition or obesity, diseases of skeletal muscle, paraplegia or quadriplegia, vegetarian diet, rapidly changing kidney function, and calculation of the dose of potentially toxic drugs that are excreted by the kidneys. 44 Concerning GFR GUIDELINES: Normal Function or Mild Renal Disease, if clinically at risk: >/=60mL/min Moderately decreased: 30-59 Severely decreased: 15-29 Renal Failure: <15 45 SEE REFERENCE LAB REPORT 46 Abnormal Flag='AB' INTERNATIONAL NORMALIZED RATIO(INR) INDICATIONS INR RANGE PATIENTS NOT ON ANTICOAGULANT THERAPY * DEEP VENOUS THROMBOSIS 2.0-3.0 PULMONARY EMBOLISM 2.0-3.0 ATRIAL FIBRILLATION 2.0-3.0 PROPHYLAXIS: 2.0-3.0 HIGH-RISK SURGERY TISSUE HEART VALVES ATRIAL FIBRILLATION ACUTE MYOCARDIAL INFARCTION VALVULAR HEART DISEASE MECHANICAL PROSTHETIC VALVE 2.5-3.5 * USE OF INR VALUES SHOULD BE LIMITED TO PATIENTS WHO ARE ON STABLE ORAL ANTICOAGULANT THERAPY. AN INR ABOVE 5.0-5.5 APPEARS TO BE ASSOCIATED WITH AN UNACCEPTABLY HIGH RISK OF BLEEDING. Procedures Date CPT Code Description Status 03/26/2012 02763 Destruction Benign Lesions Other Than Skin Tags Up To Completed 14 Lesions 03/26/2012 97838 Destruction Lesion/Any Method Premalignant Lesions Completed 05/03/2011 66483 Destruction Benign Lesions Other Than Skin Tags Up To Completed 14 Lesions 05/03/2011 07140 Destruction Lesion/Any Method Premalignant Lesions Completed 05/12/2009 72460 ECG Monitor/Report W/O Superimposition Scanning Completed 04/29/2009 00874 ECG Monitor/Report W/O Superimposition Scanning Completed 01/10/2008 19602 Airway Inhalation Treatment Completed 05/29/2003 84025 Destruc Any Method 2-14 Lesions,Each Pre Malig Completed 05/29/2003 80646 Destruction Lesion/Any Method Premalignant Lesions Completed 04/25/2003 13971 Deleted Code Use 88686 Completed 03/25/2003 32049 Destruc Any Method 2-14 Lesions,Each Pre Malig Completed 03/25/2003 25474 Destruction Lesion/Any Method Premalignant Lesions Completed 10/28/2002 10135 Airway Inhalation Treatment Completed 07/29/2002 57688 Destruction Lesion/Any Method Premalignant Lesions Completed 07/29/2002 87694 Destruc Any Method 2-14 Lesions,Each Pre Malig Completed 06/25/2002 21829 Anoscopy Diagnostic Completed 06/11/2002 82227 Destruction Lesion/Any Method Premalignant Lesions Completed 03/14/2002 26289 Destruction Lesion/Any Method Premalignant Lesions Completed 11/23/2001 15898 Electrocardiogram Complete Completed 08/17/2001 93342 Destruction Lesion/Any Method Premalignant Lesions Completed 08/14/2000 48138 Allergy Injection Single Completed 07/12/2000 45702 Allergy Injection Single Completed 06/07/2000 11687 Allergy Injection Single Completed 05/09/2000 94956 Allergy Injection Single Completed 04/06/2000 00745 Allergy Injection Single Completed 03/10/2000 15926 Allergy Injection Single Completed 02/09/2000 78960 Allergy Injection Single Completed 12/27/1999 06771 Allergy Injection Single Completed 11/29/1999 88964 Allergy Injection Single Completed Encounters Type Date Location Provider CPT E/M Dx Office Visit 10/31/2017 3:40p [place] [address] R53.83 M79.1 B27.90 J02.9 R14.0 R19.7 Office Visit 10/03/2017 10:40[place] [address] R14.0 R10.30 F41.9 N39.0 M25.561 M25.562 M25.569 Office Visit 09/22/2017 10:40a Chanelle Friend RN [facility] [employer] 79918 N39.0 M54.5 R11.0 Z68.26 Office Visit 09/19/2017 2:20p [place] [address] T85.79xS M25.562 M25.561 M25.569 Z68.26 Office Visit 08/23/2017 7:30[place] [address] M25.569 N94.12 N94.2 M25.561 M25.562 Office Visit 08/01/2017 11:20[place] [address] Z30.9 Z11.3 Z68.26 Office Visit 07/26/2017 2:00p [place] [address] N39.0 L02.214 Z32.00 N94.10 Z68.26 Office Visit 07/13/2017 9:40[place] [address] M79.1 M70.52 Z68.25 Office Visit 04/12/2017 11:00[place] [address] J45.20 Z11.8 Office Visit 11/29/2016 12:20[place] [address] S91.331A Office Visit 08/01/2016 9:30[place] [address] J01.00 Office Visit 08/25/2015 10:00[place] [address] S53.132D S80.12xD Office Visit 08/03/2015 2:00[place] [address] S53.132D S80.12xD M25.532 M25.562 Office Visit 07/20/2015 10:00[place] [address] S53.132A S80.12xA M25.532 Office Visit 07/13/2015 10:40[place] [address] S53.132A S80.12xA Office Visit 06/05/2015 3:00p [place] [address] J01.00 H66.92 J45.20 Office Visit 04/27/2015 1:40[place] [address] N30.00 N76.0 R50.9 Office Visit 01/06/2015 3:30[place] [address] J01.00 R50.9 Office Visit 07/25/2014 1:40p Chanelle Friend RN [facility] 70147 461.0 Office Visit 06/17/2014 2:20[place] [address] 461.8 Office Visit 04/25/2014 3:15[place] [address] 381.4 461.0 Office Visit 02/25/2014 10:15[place] [address] 461.0 Office Visit 11/05/2013 11:40[place] [address] 461.8 Office Visit 08/15/2013 1:00p [place] [address] 789.9 Office Visit 03/06/2013 11:40a Chanelle Friend RN [facility] 11605 079.99 Office Visit 02/04/2013 11:40a Chanelle Friend RN [facility] 97400 959.01 850.9 E906.5 Office Visit 11/15/2012 10:40a Chanelle Friend RN [facility] 32714 388.70 Office Visit 10/04/2012 9:40a Chanelle Friend RN [facility] 87165 477.9 Office Visit 03/26/2012 3:00[place] [address] 461.0 078.19 Office Visit 11/01/2011 2:45p [place] [address] 466.0 Office Visit 05/03/2011 11:00[place] [address] V72.31 314.00 078.19 V65.45 241.0 V74.5 Office Visit 05/17/2010 9:00a Chanelle Friend RN [facility] 13651 V72.31 V74.5 V73.88 Office Visit 02/16/2010 2:15[place] [address] V70.0 Office Visit 10/27/2009 11:20a Raquel García 22981 906.1 Office Visit 07/08/2009 9:00a Chanelle Friend RN [facility] 71723 789.02 386.11 Office Visit 04/29/2009 8:00a Chanelle Friend RN [facility] 84095 995.3 780.79 Office Visit 01/26/2009 8:45a Chanelle Friend RN [facility] 94578 V72.31 719.43 Office Visit 01/20/2009 2:00p Chanelle Friend RN [facility] 26398 719.43 Office Visit 11/05/2008 4:50[place] [address] 465.9 493.00 462 Office Visit 09/30/2008 10:00a Chanelle Friend RN [facility] 04258 599.0 Office Visit 01/10/2008 1:15p Chanelle Friend RN [facility] 00426 465.9 Office Visit 07/09/2007 11:30[place] [address] 473.8 477.0 Office Visit 04/30/2007 2:00[place] [address] V72.31 388.70 300.02 524.60 780.79 625.9 Office Visit 10/11/2006 11:45a Chanelle Friend RN [facility] 41575 388.70 Office Visit 08/23/2006 1:00[place] [address] 300.02 V25.09 477.0 380.10 780.79 Office Visit 06/19/2006 2:00p Chanelle Friend RN [place] [facility] 81587 616.10 Office Visit 02/20/2006 2:00[place] [address] V72.31 300.02 Office Visit 12/19/2005 1:00[place] [address] 079.99 Office Visit 12/16/2005 10:15[place] [address] 466.0 Office Visit 11/04/2005 2:15p [place] [address] 381.81 300.02 Office Visit 09/27/2005 3:00p Chanelle Friend RN [facility] 32531 788.41 Office Visit 07/29/2005 3:15[place] [address] 300.02 493.00 Office Visit 02/24/2004 11:15[place] [address] V72.3 Office Visit 02/10/2004 10:00[place] [address] 300.02 786.2 Office Visit 01/29/2004 12:00[place] [address] 466.0 788.1 Office Visit 08/21/2003 1:00p Chanelle Friend RN [facility] 78502 V72.84 Office Visit 07/10/2003 2:10p Chanelle Friend RN [facility] 73527 708.9 Office Visit 05/29/2003 3:30p Chanelle Friend RN [facility] 54274 078.10 529.0 Office Visit 05/16/2003 3:10p [place] [address] 493.00 466.0 Office Visit 03/25/2003 11:20[place] [address] 078.10 300.02 Office Visit 01/06/2003 3:00[place] [address] 459.0 075 Office Visit 01/01/2003 9:50a Chanelle Friend RN [facility] 26310 382.9 Office Visit 12/24/2002 2:30p Chanelle Friend RN [facility] 17847 075 Office Visit 12/18/2002 2:40p Chanelle Friend RN [place] [facility] 76950 785.6 462 780.79 Office Visit 10/28/2002 3:40p Chanelle Friend RN [facility] 08227 465.9 Office Visit 09/06/2002 1:10p [place] [address] 078.10 Office Visit 08/26/2002 9:10a Chanelle Friend RN [facility] 74145 112.0 Office Visit 07/29/2002 3:30[place] [address] 078.10 300.02 Office Visit 06/25/2002 8:40a Chanelle Friend RN [facility] 24917 565.0 564.00 Office Visit 05/23/2002 12:50[place] [address] 939.2 Office Visit 04/15/2002 3:10p [place] [address] 300.02 Office Visit 04/01/2002 3:00p Chanelle Friend RN [facility] 21331 V15.09 Office Visit 02/15/2002 3:10p [place] [address] 692.9 300.02 Office Visit 01/14/2002 3:30[place] [address] 729.5 300.02 Office Visit 12/24/2001 10:40a Chanelle Friend RN [facility] 07408 465.9 Office Visit 12/03/2001 4:30[place] [address] 780.79 443.0 V04.8 Office Visit 11/23/2001 3:20[place] [address] 780.79 780.2 788.42 783.5 Office Visit 11/05/2001 9:20a Chanelle Friend RN MS [facility] 30405 V15.09 Office Visit 08/17/2001 11:30[place] [address] 477.0 693.1 078.10 Office Visit 05/15/2001 3:20p Chanelle Friend RN MS [facility] 23396 704.8 Office Visit 03/23/2001 2:10p Chanelle Friend RN MS [facility] 66443 382.00 462 Office Visit 02/14/2001 7:10[place] [address] Office Visit 12/01/2000 12:55[place] [address] Office Visit 10/30/2000 1:27[place] [address] Office Visit 10/24/2000 10:20a Michelle Lu M.D. 04515 Office Visit 09/01/2000 10:00[place] [address] Office Visit 07/12/2000 3:40p Michelle Lu M.D. 72388 Office Visit 06/29/2000 10:20a Michelle Lu M.D. 61474 Office Visit 03/28/2000 2:00p Michelle Lu M.D. 85558 Office Visit 03/15/2000 3:00p Josefa Cisneros RN A.N.PBong 96512 Office Visit 01/06/2000 1:20p Josefa Cisneros RN A.N.P. 82942 Office Visit 09/10/1999 2:30p Chanelle Friend RN [facility] 33380 782.1 Office Visit 09/06/1999 2:50p Josefa Cisneros RN A.N.P. 72977 462 Plan of Care Future Appointment(s):11/23/2017 8:00 am - Reece Leonardo PA at [id number] - Reece Leonardo PAB27.90 Infectious mononucleosis, unspecified without complicationNew Medication:Work NoteNew Xrays:Abdomen, Ultrasound, CompleteComments:h/o 2002. will check titers ??Splenic enlargement -- will u/ s abdomenFollow up:f/u ~7smnlnX56.83 Other fatigueComments:will check for the tick bourne disease with in the AT. ?equiv babesia. Will recheck babesia and lyme w/ western blot.R10.30 Lower abdominal pain, unspecifiedComments:see xrmduP32.0 Abdominal distension (gaseous)Comments:will treat for IBS with diarrhea. ??IBS irritated by stress and making bladder s/s worse. Rx Xifaxan after the doxy if needed diarrhea improved.R19.7 Diarrhea, unspecifiedComments: ??xifaxan
--- OUTSIDE RECORDS SUMMARY | 2017-11-09 14:12 | XMS REPORT ---
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 Payers Type Date Identification Numbers Payment Provider Subscriber Medicaid Expires: Policy Number: [id number] Medicaid ### Marisa Barboza 2016 >11 PayID: [id number] [address] [place] [address] Commercial Policy Number: [id number] [facility] Marisa Barboza PayID: [id number] [address] [place] [address] Workers Compensation Effective: 2015 Policy Number: Juan Barboza [id number] Onset: 2015 PayID: LUIS Aleman [address] [place] [address] Problems Date Description Provider Status Onset: 09/14/2017 Contraception care Reece Leonardo PA Active Note: Nexplanon placement and subsequent immediate removal due to extreme pain Social History Type Date Description Comments Lives [...] Form Strength Qnty SIG Indications Ordering Provider Doxycycline 10/31 Active Capsules 100mg 42caps one [...] Active Aerosol 108(90Base) 8.500gm 2 puffs J45.20 Zeenat mcg/Act every 6 Yvonne hours as MD [...] tid Yvonne - [Samples MD Simran 10/31 i2uclkg] Cyclobenzaprine 09/22 Hx Tablets 5mg 14tabs 1/2 -1 M54.5 SUZANNE Chavez at Chanelle - bedtime AMANDA Hendricks MS 10/03 as 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 lasts for 8 hours Sulfamethoxazole 09/22 Hx Tablets 800-160mg 10tabs one tab N39.0 Kathy /Trimethoprim DS by mouth Chanelle - twice a AMANDA Hendricks MS 10/03 day for SPEECH LANGUAGE THERAPIST 5 days Cephalexin 07/26 Hx Tablets 500mg 14tabs 1 by N39.0 Zeenat mouth Yvonne - two MD Simran 08/02 times a day Fluconazole 07/13 Hx Tablets 100mg 10tabs 1 by Z11.8 Zeenat mouth x1 Yvonne - MD Simran 07/17 Doxycycline 04/14 Hx Capsules 100mg 60caps one tab Shara Chavez, Hyclate twice a Chanelle - day till C, RN MS 06/15 gone Doxycycline 04/12 Hx Capsules 100mg 60caps 1 cap by Shara Chavez, Monohydrate mouth Chanelle - twice a C, RN MS 04/14 day Fluconazole 04/12 Hx Tablets 100mg 10tabs 1 by Shara Epperson mouth x1 Yvonne - MD Simran 06/15 Goodsense ALL 04/12 Hx Tablets 10mg 90tabs 1 by Shara Epperson, Allergy mouth Yvonne - every MD Simran Ciprofloxacin [...] Yvonne - into the MD Simran 11/29 every 6 hours Work Note 08/02 Hx pt not S53.132D Zeenat to Yvonne - perform MD Simran 08/31 massage x 1-2 wks Work Note 07/19 Hx patient S53.132A Zeenat is out Yvonne - of MD Simran 08/02 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 due to medical reasons until evaluate d by orthoped ics Elbow Support 07/19 Hx Misc LEFT S53.132A Zeenat LEFT-RIGHT/Small elbow Yvonne -Medium - brace MD Simran 08/02 with medial collater al ligament support/ strap/hi nge Dx L Elbow MCL sprain Naprosyn 07/12 Hx Tablets 500mg 60tabs 1 by S53.132A Zeenat mouth up Yvonne - to twice MD Simran 08/11 a day as needed Proair 06/04 Hx Aerosol 108(90Base) 1units 2 p four J45.20 Zeenat, Respiclick /2016 mcg/Act times a Yvonne - day as MD Simran 08/01 Epipen 2-Ankur 06/04 Hx Solution 0.3mg/0.3ML 2units prn Zeenat Auto-Inje Yvonne - ct MD Simran 08/01 Metronidazole 04/26 Hx Tablets 500mg 14tabs 1 by N76.0 Zeenat, mouth Yvonne - every 12 MD Simran Macrobid 04/26 Hx Capsules 100mg 14caps 1 by N30.00 Zeenat, mouth Yvonne - twice a MD Simran Diflucan 04/26 Hx Tablets 100mg 2tabs 1 by N76.0 Zeenat, mouth x1 Yvonne - today; MD Simran 05/03 in 1week Amoxicillin 01/06 Hx Tablets 500mg 4 by J01.00 Zeenat, mouth x Yvonne - 1 prior MD Simran 01/06 to procedur e Amoxicillin 01/06 Hx Tablets 500mg 30tabs 1 by J01.00 Zeenat, mouth Yvonne - three MD Simran 07/12 day Amoxicillin 07/25 Hx Tablets 875mg 20tabs 1 by J01.00 Kathy mouth Chanelle - twice a C, RN MS 01/06 day SPEECH LANGUAGE THERAPIST Montelukast 07/25 Hx Tablets 10mg 30tabs 1 by J01.00 Kathy Sodium mouth Chanelle - every C, RN MS 04/[address] COHN flintrop Fluticasone 04/25 Hx Suspensio 50mcg/Act 16gm 2 sprays J01.00 Zeenat Propionate n in each Yvonne - nostril MD Simran 04/12 Amoxicillin/Clav 04/25 Hx Tablets 875-125mg 20tabs 1 by 461.0 Zeenat ulimeldae mouth Yvonne Potassium - twice a MD Simran Amoxicillin 02/25 Hx Tablets 500mg 30tabs 1 by 461.0 Zeenat mouth Yvonne - three MD Simran 04/25 times a day Fluticasone 11/05 Hx Suspensio 50mcg/Act 1units 1 spray 461.0 Johan, n b/l Laurita - nostrils MD Alida 04/25 twice a /2014 day, then may wean to 1 spray everyday , until sx resoluti on Augmentin 11/05 Hx Tablets 875-125mg 20tabs 1 tab by Johan mouth Laurita - twice a MD Alida 02/25 day x days Azithromycin 10/31 Hx Tablets 250mg 1Pack 2 tabs 461.0 Zeenat day one Yvonne - echo Khalil MD 10/04 tab daily till gone School Note 10/[address]0 Zeenat excuse Yvonne - 10/31, MD Simran 03/26 11/01, 11/02, 11/03 Amoxicillin 05/02 Hx Tablets 875mg 20tabs 1 po bid Zeenat Yvonne Khalil MD 10/31 Epipen 2-Ankur 05/02 Hx Solution 0.3mg/0.3ML 2units as Zeenat Auto-Inje needed Yvonne - zoie Khalil MD 06/04 Proair HFA 05/02 Hx Aerosol 108(90Base) 1Can 2 p qid 493.00 Zeenat mcg/ac prn Yvonne Khalil MD 03/06 Methylphenidate 05/02 Hx Tablets 10mg 30tabs 1 po qam 314.00 Macaálvaro, HCL ER may take Yvonne Khalil MD 03/26 prn Lab Testing 05/25 Hx STD Testing HIV testing Chanelle - ,jose, Ruthie, RN MS 06/04 serum gravinde x(qualit ative) Diflucan 05/20 Hx Tablets 150mg 1tabs 1 po qd Kathy Chanelle Hendricks RN MS 03/26 SPEECH LANGUAGE THERAPIST Diflucan 12/30 Hx Tablets 150mg 1tabs one tab Zeenat po times Yvonne - one sergio Khalil MD 02/16 Meclizine HCL 07/08 Hx Tablets 25mg 30tabs 1 tab at 386.11 Kathy hs for Chanelle Muhammad-7 C, RN MS 02/16 days. SPEECH LANGUAGE THERAPIST may continue as needed for vertigo. Massage Therapy 01/26 Hx Bilateral may 719.43 Kathy Arms include Chanelle - shoulder AMANDA Hendricks MS 02/16 s and SPEECH LANGUAGE THERAPIST upper arms and anterior chest. dx muscle soreness /tendoni tis to arms Accupuncture 01/26 Hx Bilateral Eval and 719.43 Kathy, Arm Pain treat Chanelle - for AMANDA Hendricks MS 02/16 tendonit SPEECH LANGUAGE THERAPIST is type pain to bilatera l arms Arm Strap 01/26 Hx DX 2units bilatera 719.43 Tendonitis l arms Chanelle - (Disp 1 AMANDA Hendricks MS 02/16 splint each arm) Cock Up Wrist 01/20 Hx Bilateral wear 9.43 , Splints during Chanelle - the day AMANDA Hendricks MS 02/16 dx tendonit is Accupuncture 01/20 Hx 719.43 Chanelle Hendricks RN MS 01/26 SPEECH LANGUAGE THERAPIST Massage therapy 01/20 Hx 719.43 Chanelle Hendricks RN MS 01/26 Bertha 12/05 Hx Tablets 3-0.02mg 3pks 1 po qd Chanelle Hendricks RN MS 02/16 Nasonex 11/05 Hx Suspensio 50mcg/Act Samples 2 sprays 465.9 n each Noemí Olivera MD 01/26 Proair HFA 11/05 Hx Aerosol 108(90Base) 8.500gm 2 P qid 493.00 [facility] prsilvestre Khalil MD 05/02 Advair HFA 11/05 Hx Aerosol 115-21mcg/a Sample 2 puffs 493.00 c qd Noemí Olivera MD 02/16 Singulair 11/05 Hx Tablets 10mg Samples 1 po qd 493.00 Noemí Olivera MD 01/26 Bactrim DS 09/30 Hx Tablets 800-160mg 599.0 Chanelle Hendricks RN MS 09/30 Cipro 09/30 Hx Tablets 250mg 6tabs 1 po bid 599.0 x 3 days Chanelle Hendricks RN MS 11/05 Amoxicillin 01/09 Hx Tablets 875mg 20tabs 1 po bid 465.9 Chanelle Hendricks RN MS 01/19 Robitussin ac 01/09 Hx 120cc 1-2 tsp 465.9 q 4 Chanelle - kacie Hendricks RN MS 01/19 needed for cough Fexofenadine HCL 07/08 Hx Tablets 180mg 30tabs 1 po qd 477.0 prn Yvonne Khalil MD 01/09 Nortriptyline 04/29 Hx Capsules 10mg 30caps 1-2 po 524.60 qhs Yvonne Khalil MD 01/09 Epipen 2-Ankur [...] Aqua 10/11 Hx Suspensio 32mcg/Act 1Bottle one n spray Yvonne Khalil MD 01/09 nares q am Cortisporin 08/23 Hx Solution 1% Otic 1Bottle 4 GTT 380.10 Zeenat qid X 1 Yvonne Khalil MD 01/09 Flagyl 06/22 Hx Tablets 500mg 21tabs 1 Bidx7 Kathy Days Chanelle Hendricks RN MS 06/29 Zoloft 02/20 Hx Tablets 25mg 1 po qd Angelica Noemí Olivera MD 11/28 Robitussin A-c 12/19 Hx Syrup 100mg;10mg/ 120ml 10 ML 079.99 Zeenat 5ML qid prn Yvonne Khalil MD 02/20 School Note 12/19 Hx Please 079.99 Zeenat Excuse Yvonne Khalil MD 02/20 Z-Ankur 12/16 Hx Tablets 250mg 1tabs as Dir 466.0 Zeenat Yvonne Khalil MD 02/20 Bactrim DS 09/28 Hx Tablets 160mg;800 14tabs 1 PO bid [place], mg Chanelle Hendricks RN MS 11/04 SPEECH LANGUAGE THERAPIST Mary D 07/29 Hx Tablets 60mg;120 mg 60tabs One bid Zeenat prn Yvonne Khalil MD 02/20 Albuterol 07/29 Hx Aerosol 90mcg/Dose 1Can 2 Puffs Zeenat, Inhalation qid prn Yvonne Khalil MD 11/06 Ortho Tri-Cyclen 08/11 Hx Tablets 0.025mg;0.1 1Pack 1 po qd Zeenat, 8 mg Yvonne Khalil MD 12/05 Nasonex 02/23 Hx Suspensio 50mcg 1units 2 Zeenat, Intranasal [place] n Inhalati Yvonne Dowd on Daily MD Simran 02/20 Zoloft Hx Tablets 50mg 90tabs 1 po qd Trabout, /0000 Noemí Olivera MD 02/20 Medications Administered in Office Medication Date Status Form Strength Qnty SIG Indications Ordering Provider PPD Administered Injection Nurses 011 Schedule Raquel Depo Medrol 40 Administered Injection Zeenat, MG 006 Yvonne Khalil MD Immunizations CPT Code Status Date Vaccine Lot # [id number] Given 11/26/2016 Tdap (Adacel) Ages 7 And Above Only 45083 Given 09/24/2007 Tdap (Adacel) Ages 7 And Above Only 98530 Given 09/24/2007 Tdap (Adacel) Ages 7 And Above Only [id number] 95346 Given 07/28/2003 MMR Virus Immunization 41785 Given 12/03/2001 Afluria Or Fluvirin Flu Vac Intramuscular 75954 Given 05/09/2000 Hepatitis B Vac Ped/Adolescent 3 Dose Schedule 45393 Given 11/03/1999 Hepatitis B Vac Ped/Adolescent 3 Dose Schedule Vital Signs Date Vital Result Comment 10/31/2017 Body Temperature 99.0 F Weight 157.00 [...] Test Date Test Result H/L Range Note Laboratory test finding 10/31/2017 Monospot <pending> Laboratory test finding 10/31/2017 1 Strep Screen neg Negative (In-House) GC/Chlamydia By Dna 08/23/2017 Chlamydia by Dna Probe NEGATIVE Negative Probe GC by Dna Probe NEGATIVE Negative Affirm 08/23/2017 Trichomonas Vaginalis Negative Negative Gardnerella Vaginalis Negative Negative Corin Species Negative Negative Laboratory test finding 08/23/2017 [facility] Pap SEE NOTE 1 Treponema Igg/Igm-RL 08/01/2017 Treponema Igg/Igm @ NEGATIVE (Neg) 2, 3 Affirm 08/01/2017 Trichomonas Vaginalis Negative Negative 2 Gardnerella Vaginalis Negative Negative 2 Corin Species Negative Negative 2 HIV Combo By Eia 08/01/2017 Case Folder HIV NON REACTIVE Non Reactive 2 Combo Laboratory test 07/26/2017 Urine Culture Microbiology res 4 finding <SEE NOTE> GC/Chlamydia By Dna 07/26/2017 Chlamydia by Dna NEGATIVE Negative Probe Probe GC by Dna Probe NEGATIVE Negative Laboratory test 07/26/2017 HCG,Quant Preg <1 mU/mL 5 finding Laboratory test 08/15/2013 Urine Culture Microbiology res <SEE 6 finding NOTE> Laboratory test 05/03/2011 [facility] Pap SEE NOTE 7 finding Laboratory test 05/03/2011 TSH 1.19 uIU/mL 0.34-5.60 2 finding CBC With Auto Diff 05/03/2011 WBC 8.5 K/uL 4.1-11.0 2 RBC 3.83 M/uL Low 4.00-5.40 2 Hemoglobin 12.7 gm/dL 12.0-16.0 2 Hematocrit 37.3 % 36.0-47.0 2 MCV 97.4 fL High 80.0-97.0 2 MCH 33.2 pg High 27.0-32.0 2 MCHC 34.1 g/dL 32.0-36.0 2 RDW 12.9 % 11.5-14.5 2 PLT Count 286 K/ul 140-400 2 Neutrophil 67.9 % 35.0-75.0 2 Lymphocyte 20.4 % 16.0-52.0 2 Monocyte 8.3 % 2.0-10.0 2 Eosinophil 2.7 % 0.0-5.0 2 Basophil 0.7 % 0.0-4.0 2 Abs Neutrophils 5.8 K/uL 2.1-8.0 2 Abs Lymphocytes 1.7 K/uL 0.8-5.5 2 Abs Monocytes 0.7 K/uL 0.1-1.0 2 Abs Eosinophils 0.2 K/uL 0.0-0.5 2 Abs Basophils 0.1 K/uL 0.0-0.3 2 GC/Chlamydia By Dna Probe 05/03/2011 Chlamydia by Dna Probe NEGATIVE Negative 2 GC by Dna Probe NEGATIVE Negative 2 Laboratory test finding 05/03/2011 HIV 1/2 AB NEGATIVE (Neg) 2, 8 Laboratory test finding 05/17/2010 GC by Dna Probe NEGATIVE Negative 9 Chlamydia by Dna Probe Negative Negative 9 Laboratory test finding 05/17/2010 [facility] Pap SEE NOTE 9, 10 Stool Panel 10/21/2009 Ova And Parasites - [place] (SEE NOTE) 11, 12 Giardia Antigen-LA (SEE NOTE) 11, 13 Culture (Stool) Enteric 10/21/2009 Enteric Pathogen Culture - (SEE NOTE) 11, 14 Pathog [place] Specimen Description - LA N/A 11 Special Requests - LA N/A 11 Result - LA N/A 11 Report Status - LA N/A 11 C Diff Toxin B/PCR -LA 10/21/2009 C Diff Toxin B/PCR -LA (SEE NOTE) 11 , 15 Specimen Description - LA N/A 11 Special Requests - LA N/A 11 Result - LA N/A 11 Report Status - LA N/A 11 Celiac Disease Panel -LA 07/09/2009 Gliadin Peptide Iga 4 units 0-19.999 16 Gliadin Peptide Igg 3 units 0-19.999 17 Transglutaminase Iga -LA 6 units 0-19.999 18 Transglutaminase Igg -LA 3 units 0-19.999 19 Iga - LA 294 mg/dL 71-374 CBC With Auto Diff 07/08/2009 WBC 4.3 K/ul 4.0-10.9 20 RBC 3.84 M/ul Low 4.20-5.40 20 Hemoglobin 12.6 GM/dl 12.5-16.0 20 Hematocrit 36.3 % 36.0-47.0 20 MCV 94.4 FL 80.0-97.0 20 MCH 32.8 pg High 27.0-31.0 20 MCHC 34.7 g/dL 32.0-36.0 20 RDW 12.9 % 11.5-14.5 20 Platelet Count 227 K/ul 140-440 20 Neutrophils 46.3 % Low 50-70 20 Lymphocytes 37.1 % 20-44 20 Monocytes 7.8 % 2-9 20 Eosinophil 7.9 % High 0-4 20 Basophil 0.9 % 0-2 20 Absolute Neutrophils 2.0 K/ul Low 2.05-7.63 20 Absolute Lymphocytes 1.6 K/ul 0.8-4.8 20 Absolute Monocytes 0.3 K/ul 0.1-1.0 20 Absolute Eosinophils 0.3 K/ul 0.1-0.5 20 Absolute Basophils 0.0 K/ul 0.0-0.3 20 Hematology Comment (Comm2) N/A 20 Basic (BMP) 07/08/2009 Sodium 142 mmol/L 135-144 20 Potassium 5.4 mmol/L High 3.6-5.2 20, 21 Chloride 105 mmol/L 97-110 20 Carbon Dioxide 30 mmol/L 23-32 20 Glucose 91 mg/dL 70-105 20 BUN 5 mg/dL Low 6-22 20 Creatinine 0.7 mg/dL 0.5-1.3 20 BUN/CR 7 Ratio 20 Anion Gap 12 mmol/L 8-16 20 Calcium 10.0 mg/dL 8.6-10.2 20 GFR Calculation > 60 mL/min 60-175 20, 22 GFR For > 60 mL/min 60-175 20, 23 Laboratory test finding 07/08/2009 Lipase 24 U/L 22-51 20 Amylase 56 U/L 36-128 20 Magnesium 2.1 mg/dL 1.8-2.5 20 CBC With Auto Diff 04/29/2009 WBC 4.6 K/ul 4.0-10.9 24 RBC 3.89 M/ul Low 4.20-5.40 24 Hemoglobin 12.6 GM/dl 12.5-16.0 24 Hematocrit 36.9 % 36.0-47.0 24 MCV 95.0 FL 80.0-97.0 24 MCH 32.4 pg High 27.0-31.0 24 MCHC 34.1 g/dL 32.0-36.0 24 RDW 12.8 % 11.5-14.5 24 Platelet Count 234 K/ul 140-440 24 Neutrophils 42.4 % Low 50-70 24 Lymphocytes 40.5 % 20-44 24 Monocytes 7.6 % 2-9 24 Eosinophil 9.1 % High 0-4 24 Basophil 0.4 % 0-2 24 Absolute Neutrophils 2.0 K/ul Low 2.05-7.63 24 Absolute Lymphocytes 1.9 K/ul 0.8-4.8 24 Absolute Monocytes 0.3 K/ul 0.1-1.0 24 Absolute Eosinophils 0.4 K/ul 0.1-0.5 24 Absolute Basophils 0.0 K/ul 0.0-0.3 24 Hematology Comment (Comm2) N/A 24 Laboratory test finding 04/29/2009 TSH 1.12 uIU/ml 0.34-5.60 24 Iron Panel 04/29/2009 Iron, Total 162 g/dL 28-170 24 Transferrin 287 mg/dL 192-382 24 Tibc (Calc) 402 g/dL 261-478 24 % Saturation (Calc) 40.3 % 13.0-45.0 24 Laboratory test finding 04/29/2009 Vitamin D, 25 Hydroxy 60 ng/mL 31-100 24 Food Allergy Panel 04/29/2009 Peanut Conc 0.100 24 Peanut Class 1 CLASS 24 Soybean Conc 0.060 24 Soybean Class 0/1 CLASS CLASS 24 Milk Conc 0.230 24 Milk Class 2 CLASS 24 Reliance Conc 0.200 24 Reliance Class 2 CLASS 24 Shrimp Conc <0.05 24 Shrimp Class 0 CLASS 24 Egg Whole Conc 0.120 24 Egg Whole Class 1 CLASS 24 Tomato Conc <0.05 24 Tomato Class 0 CLASS 24 Wheat Conc 0.160 24 Wheat Class 2 CLASS 24 Chocolate Conc <0.05 24 Chocolate Class 0 CLASS 24 [place] Conc <0.05 24 [place] Class 0 CLASS 24 Basic (BMP) 04/29/2009 Sodium 142 mmol/L 135-144 24 Potassium 4.1 mmol/L 3.6-5.2 24 Chloride 104 mmol/L 97-110 24 Carbon Dioxide 27 mmol/L 23-32 24 Glucose 79 mg/dL 70-105 24 BUN 4 mg/dL Low 6-22 24 Creatinine 0.6 mg/dL 0.5-1.3 24 BUN/CR 7 Ratio 24 Anion Gap 15 mmol/L 8-16 24 Calcium 9.9 mg/dL 8.6-10.2 24 GFR Calculation > 60 mL/min 60-175 24, 25 GFR For > 60 mL/min 60-175 24, 26 Laboratory test finding 04/29/2009 Hemoglobin A1c 5.7 % 4.1-6.5 24 Allergy Interpretation SEE NOTE 24, 27 Laboratory test finding 01/26/2009 [facility] Pap - [place] (SEE NOTE) 28, 29 Chlamydia And GC 01/26/2009 Chlamydia By Dna NEGATIVE Negative 28 Probe GC By Dna Probe NEGATIVE Negative 28 CBC With Auto Diff 04/30/2007 WBC 6.4 K/ul 4.0-10.9 30 RBC 4.17 M/ul Low 4.20-5.40 30 Hemoglobin 13.4 GM/dl 12.5-16.0 30 Hematocrit 39.4 % 36.0-47.0 30 MCV 94.5 FL 80.0-97.0 30 MCH 32.1 pg High 27.0-31.0 30 MCHC 33.9 g/dL 32.0-36.0 30 RDW 11.4 % Low 11.5-14.5 30 Platelet Count 300 K/ul 140-440 30 Neutrophils 47.2 % Low 50-70 30 Lymphocytes 37.3 % 20-44 30 Monocytes 7.2 % 2-9 30 Eosinophil 8.3 % High 0-4 30 Basophil 0.0 % 0-2 30 Absolute Neutrophils 3.0 K/ul 2.05-7.63 30 Absolute Lymphocytes 2.4 K/ul 0.8-4.8 30 Absolute Monocytes 0.5 K/ul 0.1-1.0 30 Absolute Eosinophils 0.5 K/ul 0.1-0.5 30 Absolute Basophils 0.0 K/ul Low 0.1-0.3 30 CMP 04/30/2007 Sodium 138 mmol/L 135-144 30 Potassium 4.3 mmol/L 3.6-5.2 30 Chloride 102 mmol/L 97-110 30 Carbon Dioxide 27 mmol/L 23-33 30 Glucose 94 mg/dL 70-105 30 BUN 6 mg/dL 6-22 30 Creatinine 0.5 mg/dL 0.5-1.3 30 BUN/CR 12 Ratio 12.0-20.0 30 Calcium 9.7 mg/dL 8.6-10.2 30 Total Protein 7.4 g/dL 5.8-7.8 30 Albumin 4.2 g/dL 3.5-4.8 30 Globulin 3.2 g/dL 2.0-3.5 30 A/G Ratio 1.3 Ratio 1.0-2.2 30 Total Bilirubin 0.6 mg/dL 0.3-1.2 30 Alkaline Phosphatase 30 U/L 24-140 30 Alt 21 U/L 4-45 30 Ast 27 U/L 12-40 30 Anion Gap 13 mmol/L 8-16 30 GFR Calculation > 60 mL/min 30, 31 GFR For > 60 mL/min 30, 32 Laboratory test 04/30/2007 TSH 1.04 uIU/ml 0.34-5.60 30 finding Laboratory test 02/20/2006 Papsmear, Thinprep SEE REFERENCE [place] 33 finding - [place] <SEE NOTE> Chlamydia And [...] Platelet Estimate NORMAL RBC Morphology NORMAL Urinalysis - 09/27/2005 Color -LA YELLOW Appearance -LA HAZY Spec Grav Urine 1.010 (1.003-1.030) PH Urine -LA 6 (5.0-7.5) Leukocyte Esterase -LA 2+ (Neg) Nitrite -LA POSITIVE (Neg) Protein Urine-LA NEGATIVE (Neg) Glucose Urine -LA NEGATIVE (Neg) Ketone Urine -LA NEGATIVE (Neg) Urobilinogen -LA NORMAL (Norm) Bilirubin Urine -LA NEGATIVE (Neg) Blood Urine -LA TRACE (Neg) Urine Microscopic, Only - 09/27/2005 Urine WBC -LA * 50-100 /HPF [...] Aptt) 27.7 seconds 23.0-32.0 Inr 1.0 2.0-3.0 34 Diff For Manual CBC 12/18/2002 RBC Morphology [...] 0.1-0.5 Absolute Basophils 0.1 K/ul 0.1-0.3 1 LABORATORY [facility], [facility]. [address] [place] [address] CYTOLOGY REPORT Source of Specimen(s): [facility] Vaginal/ Cervical/ Endocervical Pap Smear - One Vial Date of Last Menstrual Period: None Provided Specimen Adequacy SATISFACTORY FOR EVALUATION PRESENCE OF ENDOCERVICAL/TRANSFORMATION ZONE COMPONENT General Categorization NEGATIVE FOR INTRAEPITHELIAL LESION OR MALIGNANCY Interpretation NEGATIVE FOR INTRAEPITHELIAL LESION OR MALIGNANCY Reported: 08/25/2017 11:50 Electronically Signed Out By Yaquelin CHUA(ASCP) lgs ICD9 Code: N94.2 CPT code: A: [id number] Unless otherwise specified, [facility] [address] [address] 2 This sample is drawn by: 3 Unless otherwise specified, testing performed [facility] [address] [address] 4 Microbiology results SOURCE Random urine FINAL RESULT No growth 5 INTERPRETATION: LESS THAN 6 NEGATIVE 6 - 10 BORDERLINE (SUGGEST REPEAT IN 48 HOURS) APPROX HCG RANGE WEEKS POST LMP 11 - 130 3 - 4 WEEKS 75 - 2600 4 - 5 WEEKS 850 - 52507 5 - 6 WEEKS 4000 - 999113 6 - 7 WEEKS 56538 - 512751 7 - 12 WEEKS 47904 - 746289 12 - 16 WEEKS 1400 - 33013 16 - 29 WEEKS 940 - 36581 29 - 41 WEEKS Unless otherwise specified, testing [facility] [address] [address] 6 Microbiology results SOURCE URINE FINAL RESULT No growth 7 [facility]. [address] [place] [address] GYNECOLOGIC CYTOLOGY REPORT Accession Number: [id number] Source of Specimen(s): A: [facility] Vaginal/ Cervical/ [...] Reported: 05/05/2011 Electronically Signed Out By Terra CHUA(ASCP) [facility] oliveros Unless otherwise specified, testing performed by [facility] [address] [address] THIS INFORMATION HAS BEEN DISCLOSED TO YOU FROM CONFIDENTIAL RECORDS WHICH ARE PROTECTED BY STATE LAW. STATE LAW PROHIBITS YOU FROM MAKING ANY FURTHER DISCLOSURE OF THIS INFORMATION WITHOUT THE SPECIFIC WRITTEN CONSENT OF THE PERSON TO WHOM IT PERTAINS, OR OTHERWISE PERMITTED BY LAW. Unless otherwise specified, testing performed by [facility], [address] [address] 9 This sample is drawn by:MM 10 [facility]. [address] [place] [address] GYNECOLOGIC CYTOLOGY REPORT Accession Number: [id number] Source of Specimen(s): A: [facility] Vaginal/ Cervical/ [...] 05/19/2010 Electronically Signed Out By Yisel CHUA(ASCP) [facility] Unless otherwise specified, testing performed by [address] [address] This sample is drawn by: DB 12 SPECIMEN DESCRIPTION STOOL SPECIAL REQUESTS NONE RESULT [...] 10/22/2009 Unless otherwise specified, testing performed by [facility] [address] [address] 13 SPECIMEN DESCRIPTION STOOL SPECIAL REQUESTS NONE RESULT NEGATIVE FOR GIARDIA ANTIGEN BY IMMUNOASSAY REPORT STATUS FINAL 10/22/2009 Unless otherwise specified, testing performed by [facility] [address] [address] 14 SPECIMEN DESCRIPTION STOOL SPECIAL REQUESTS NONE CULTURE RESULTS NEGATIVE FOR SALMONELLA, SHIGELLA, AND E COLI O1 57 BY CULTURE. NEGATIVE FOR CAMPYLOBACTER COLI/JEJUNI BY IMMUNO ASSAY. NO SHIGA LIKE (CHAPO) TOXIN DETECTED BY IMMUNOASS AY. REPORT STATUS FINAL 10/23/2009 Unless otherwise specified, testing performed by [facility] [address] [place] [id number] 15 SPECIMEN DESCRIPTION STOOL SPECIAL REQUESTS NONE RESULT NEGATIVE: CLOSTRIDIUM DIFFICILE TOXIN B GENE NO T DETECTED BY PCR. REPORT STATUS FINAL 10/22/2009 Unless otherwise specified, testing performed by [facility] [address] [place] [id number] 16 INTERPRETATION OF RESULTS: < 20 UNITS NEGATIVE 20-30 UNITS WEAK POSITIVE > 30 UNITS MODERATE TO STRONG POSITIVE The following result was obtained with the [employer] QUANTA Lite Gliadin IgA II. Results obtained with other manufacturers' assay methods may not be used interchangeably. The magnitude of the reported IgA level cannot be correlated to an endpoint titer. 17 INTERPRETATION OF RESULTS: < 20 UNITS NEGATIVE 20-30 UNITS WEAK POSITIVE > 30 UNITS MODERATE TO STRONG POSITIVE The following result was obtained with the [employer] QUANTA Lite Gliadin IgG II. Results obtained with other manufacturers' assay methods may not be used interchangeably. The magnitude of the reported IgG levels cannot be correlated to an endpoint titer. 18 INTERPRETATION OF RESULTS: < 20 UNITS NEGATIVE 20-30 UNITS WEAK POSITIVE > 30 UNITS MODERATE TO STRONG POSITIVE The following result was obtained with the [employer] QUANTA Lite h-tTG IgA HEMANTH. Results obtained with other manufacturers' assay methods may not be used interchangeably. The magnitude of the reported IgA level cannot be correlated to an endpoint titer. Performed at [address] [place] [address] 19 INTERPRETATION OF RESULTS: < 20 UNITS NEGATIVE 20-30 UNITS WEAK POSITIVE > 30 UNITS MODERATE TO STRONG POSITIVE The following result was obtained with the [employer] QUANTA Lite h-tTG IgG HEMANTH. Results obtained with other manufacturers' assay methods may not be used interchangeably. The magnitude of the reported IgG levels cannot be correlated to an endpoint titer. Performed at [address] [place] [address] Unless otherwise specified, testing performed by [facility] [address] [place] [id number] 20 This sample is drawn by:CT 21 NO VISIBLE HEMOLYSIS The difference between the most recent result of 4.1 and the current result of 5.4 exceeds the absolute delta value of 0.5 as defined for this test. 22 Concerning GFR GUIDELINES: Normal Function or Mild [...] drugs that are excreted by the kidneys. 23 Concerning GFR GUIDELINES: Normal Function or Mild Renal Disease, if clinically at risk: >/=60mL/min Moderately decreased: 30-59 Severely decreased: 15-29 Renal Failure: <15 24 FASTING This sample is drawn by: RAJAN 25 Concerning GFR GUIDELINES: Normal Function or Mild [...] drugs that are excreted by the kidneys. 26 Concerning GFR GUIDELINES: Normal Function or Mild Renal Disease, if clinically at risk: >/=60mL/min Moderately decreased: 30-59 Severely decreased: 15-29 Renal Failure: <15 27 CLASS CONC IU/ml INTERPRETATION Negative <0.05 Negative 0/1 0.05 - 0.08 Equivocal 1 0.08 - 0.15 Positive 2 0.15 - 0.50 Positive 3 0.50 - 2.50 Positive 4 2.50 - 12.50 Positive 5 12.50 - 62.50 Positive 6 >62.50 Positive 28 This sample is drawn by: RAJAN 29 [facility], [facility]. [address] [place] [address] GYNECOLOGIC CYTOLOGY REPORT Accession Number: [id number] Source of Specimen(s): A: [facility] Vaginal / [...] 01/28/2009 Electronically Signed Out By Terra CHUA(ASCP) [facility] Lindsey Campbell ICD9 Code: V72.31 Unless otherwise specified, testing performed by [facility] [employer] [address] [place] [id number] CARLOS 530 31 Concerning GFR GUIDELINES: Normal Function or Mild [...] drugs that are excreted by the kidneys. 32 Concerning GFR GUIDELINES: Normal Function or Mild Renal Disease, if clinically at risk: >/=60mL/min Moderately decreased: 30-59 Severely decreased: 15-29 Renal Failure: <15 33 SEE REFERENCE LAB REPORT 34 Abnormal Flag='AB' INTERNATIONAL NORMALIZED RATIO(INR) INDICATIONS INR [...] Procedures Date CPT Code Description Status 03/26/2012 21781 Destruction Benign Lesions Other Than Skin Tags Up To Completed 14 Lesions 03/26/2012 26960 Destruction Lesion/Any Method Premalignant Lesions Completed 05/03/2011 80229 Destruction Benign Lesions Other Than Skin Tags Up To Completed 14 Lesions 05/03/2011 71513 Destruction Lesion/Any Method Premalignant Lesions Completed 05/12/2009 49534 ECG Monitor/Report W/O Superimposition Scanning Completed 04/29/2009 77269 ECG Monitor/Report W/O Superimposition Scanning Completed 01/10/2008 42730 Airway Inhalation Treatment Completed 05/29/2003 29832 Destruc Any Method 2-14 Lesions,Each Pre Malig Completed 05/29/2003 75812 Destruction Lesion/Any Method Premalignant Lesions Completed 04/25/2003 42953 Deleted Code Use 68583 Completed 03/25/2003 95914 Destruc Any Method 2-14 Lesions,Each Pre Malig Completed 03/25/2003 23258 Destruction Lesion/Any Method Premalignant Lesions Completed 10/28/2002 10674 Airway Inhalation Treatment Completed 07/29/2002 91400 Destruction Lesion/Any Method Premalignant Lesions Completed 07/29/2002 82330 Destruc Any Method 2-14 Lesions,Each Pre Malig Completed 06/25/2002 31272 Anoscopy Diagnostic Completed 06/11/2002 89078 Destruction Lesion/Any Method Premalignant Lesions Completed 03/14/2002 01720 Destruction Lesion/Any Method Premalignant Lesions Completed 11/23/2001 41683 Electrocardiogram Complete Completed 08/17/2001 64715 Destruction Lesion/Any Method Premalignant Lesions Completed 08/14/2000 40432 Allergy Injection Single Completed 07/12/2000 43444 Allergy Injection Single Completed 06/07/2000 96207 Allergy Injection Single Completed 05/09/2000 35374 Allergy Injection Single Completed 04/06/2000 61979 Allergy Injection Single Completed 03/10/2000 10241 Allergy Injection Single Completed 02/09/2000 32794 Allergy Injection Single Completed 12/27/1999 52485 Allergy Injection Single Completed 11/29/1999 06875 Allergy Injection Single Completed Encounters Type Date Location Provider CPT E/M Dx Office Visit 10/03/2017 10:40a [place] [address] R14.0 R10.30 F41.9 N39.0 M25.561 M25.562 M25.569 Office Visit 09/22/2017 10:40a Chanelle Friend, RN [facility] [employer] 64603 N39.0 M54.5 R11.0 Z68.26 Office Visit 09/19/2017 2:20p [place] [address] T85.79xS M25.562 M25.561 M25.569 Z68.26 Office Visit 08/23/2017 7:30[place] [address] M25.569 N94.12 N94.2 M25.561 M25.562 Office Visit 08/01/2017 11:20[place] [address] Z30.9 Z11.3 Z68.26 Office Visit 07/26/2017 2:00p [place] [address] N39.0 L02.214 Z32.00 N94.10 Z68.26 Office Visit 07/13/2017 9:40[place] [address] M79.1 M70.52 Z68.25 Office Visit 04/12/2017 11:00a [place] [address] J45.20 Z11.8 Office Visit 11/29/2016 12:20p [place] [address] S91.331A Office Visit 08/01/2016 9:30[place] [address] J01.00 Office Visit 08/25/2015 10:00[place] [address] S53.132D S80.12xD Office Visit 08/03/2015 2:00[place] [address] S53.132D S80.12xD M25.532 M25.562 Office Visit 07/20/2015 10:00[place] [address] S53.132A S80.12xA M25.532 Office Visit 07/13/2015 10:40[place] [address] S53.132A S80.12xA Office Visit 06/05/2015 3:00p [place] [address] J01.00 H66.92 J45.20 Office Visit 04/27/2015 1:40[place] [address] N30.00 N76.0 R50.9 Office Visit 01/06/2015 3:30[place] [address] J01.00 R50.9 Office Visit 07/25/2014 1:40p Chanelle Friend RN [facility] 98082 461.0 Office Visit 06/17/2014 2:20[place] [address] 461.8 Office Visit 04/25/2014 3:15[place] [address] 381.4 461.0 Office Visit 02/25/2014 10:15[place] [address] 461.0 Office Visit 11/05/2013 11:40[place] [address] 461.8 Office Visit 08/15/2013 1:00[place] [address] 789.9 Office Visit 03/06/2013 11:40a Chanelle Friend RN [facility] 80292 079.99 Office Visit 02/04/2013 11:40a Chanelle Friend RN [facility] 00771 959.01 850.9 E906.5 Office Visit 11/15/2012 10:40a Chanelle Friend RN [facility] 71204 388.70 Office Visit 10/04/2012 9:40a Chanelle Friend RN [facility] 56094 477.9 Office Visit 03/26/2012 3:00[place] [address] 461.0 078.19 Office Visit 11/01/2011 2:45[place] [address] 466.0 Office Visit 05/03/2011 11:00[place] [address] V72.31 314.00 078.19 V65.45 241.0 V74.5 Office Visit 05/17/2010 9:00a Chanelle Friend RN [facility] 20668 V72.31 V74.5 V73.88 Office Visit 02/16/2010 2:15p [place] [address] V70.0 Office Visit 10/27/2009 11:20a Raquel Rivera Raquel 77938 906.1 Office Visit 07/08/2009 9:00a Chanelle Friend, AMANDA [facility] 75472 789.02 386.11 Office Visit 04/29/2009 8:00a Chanelle Friend RN [facility] 03372 995.3 780.79 Office Visit 01/26/2009 8:45a Chanelle Friend RN MS [facility] 75672 V72.31 719.43 Office Visit 01/20/2009 2:00p Chanelle Friend RN [facility] 32009 719.43 Office Visit 11/05/2008 4:50[place] [address] 465.9 493.00 462 Office Visit 09/30/2008 10:00a Chanelle Friend RN [facility] 16936 599.0 Office Visit 01/10/2008 1:15p Chanelle Friend RN [facility] 20421 465.9 Office Visit 07/09/2007 11:30[place] [address] 473.8 477.0 Office Visit 04/30/2007 2:00[place] [address] V72.31 388.70 300.02 524.60 780.79 625.9 Office Visit 10/11/2006 11:45a Chanelle Friend RN [facility] 60913 388.70 Office Visit 08/23/2006 1:00[place] [address] 300.02 V25.09 477.0 380.10 780.79 Office Visit 06/19/2006 2:00p Chanelle Friend RN [facility] 28946 616.10 Office Visit 02/20/2006 2:00p [place] [address] V72.31 300.02 Office Visit 12/19/2005 1:00[place] [address] 079.99 Office Visit 12/16/2005 10:15[place] [address] 466.0 Office Visit 11/04/2005 2:15[place] [address] 381.81 300.02 Office Visit 09/27/2005 3:00p Chanelle Friend RN [facility] 69636 788.41 Office Visit 07/29/2005 3:15p [place] [address] 300.02 493.00 Office Visit 02/24/2004 11:15[place] [address] V72.3 Office Visit 02/10/2004 10:00[place] [address] 300.02 786.2 Office Visit 01/29/2004 12:00[place] [address] 466.0 788.1 Office Visit 08/21/2003 1:00p Chanelle Friend RN [facility] 06007 V72.84 Office Visit 07/10/2003 2:10p Chanelle Friend RN [facility] 98209 708.9 Office Visit 05/29/2003 3:30p Chanelle Friend RN [facility] 90268 078.10 529.0 Office Visit 05/16/2003 3:10p [place] [address] 493.00 466.0 Office Visit 03/25/2003 11:20[place] [address] 078.10 300.02 Office Visit 01/06/2003 3:00[place] [address] 459.0 075 Office Visit 01/01/2003 9:50a Chanelle Friend RN [facility] 83865 382.9 Office Visit 12/24/2002 2:30p Chanelle Friend RN [facility] 65505 075 Office Visit 12/18/2002 2:40p Chanelle rFiend RN [facility] 07931 785.6 462 780.79 Office Visit 10/28/2002 3:40p Chanelle Friend RN [facility] 77443 465.9 Office Visit 09/06/2002 1:10p [place] [address] 078.10 Office Visit 08/26/2002 9:10a Chanelle Friend RN [facility] 44111 112.0 Office Visit 07/29/2002 3:30[place] [address] 078.10 300.02 Office Visit 06/25/2002 8:40a Chanelle Friend RN [facility] 29244 565.0 564.00 Office Visit 05/23/2002 12:50p [place] [address] 939.2 Office Visit 04/15/2002 3:10p [place] [address] 300.02 Office Visit 04/01/2002 3:00p Chanelle Friend RN [facility] 25631 V15.09 Office Visit 02/15/2002 3:10p [place] [address] 692.9 300.02 Office Visit 01/14/2002 3:30[place] [address] 729.5 300.02 Office Visit 12/24/2001 10:40a Chanelle Friend RN [facility] 19384 465.9 Office Visit 12/03/2001 4:30[place] [address] 780.79 443.0 V04.8 Office Visit 11/23/2001 3:20[place] [address] 780.79 780.2 788.42 783.5 Office Visit 11/05/2001 9:20a Chanelle Friend RN [facility] 07349 V15.09 Office Visit 08/17/2001 11:30[place] [address] 477.0 693.1 078.10 Office Visit 05/15/2001 3:20p Chanelle Friend RN [facility] 79176 704.8 Office Visit 03/23/2001 2:10p Chanelle Friend RN [facility] 15397 382.00 462 Office Visit 02/14/2001 7:10[place] [address] Office Visit 12/01/2000 12:55[place] [address] Office Visit 10/30/2000 1:27p [place] [address] Office Visit 10/24/2000 10:20a Michelle Lu M.D. 75633 Office Visit 09/01/2000 10:00[place] [address] Office Visit 07/12/2000 3:40p Michelle Lu M.D. 14207 Office Visit 06/29/2000 10:20a Michelle Lu M.D. 67335 Office Visit 03/28/2000 2:00p Michelle Lu M.D. 48968 Office Visit 03/15/2000 3:00p Josefa Cisneros RN A.N.P. 44274 Office Visit 01/06/2000 1:20p Josefa Cisneros RN A.N.P. 94949 Office Visit 09/10/1999 2:30p Chanelle Friend RN [facility] [employer] 78537 782.1 Office Visit 09/06/1999 2:50p Josefa Cisneros RN A.N.P. 01874 462 Plan of Care Future Appointment(s):11/23/2017 8:00 am - Reece Leonardo PA at [id number] - Reece Leonardo PAR53.83 Other fatigueNew Medication:Doxycycline Hyclate 100 mgComments:will check for the tick bourne disease with in the AT.Follow up:f /u in 4btiixC46.1 MyalgiaComments:see mxoyvV73.90 Infectious mononucleosis, unspecified without complicationComments:h/o 2002. will check [id number] Acute pharyngitis, [id number] Abdominal distension (gaseous)Comments:will treat for IBS with diarrhea. ??IBS irritated by stress and making bladder s/s worse. Rx Xifaxan after the doxy if qqdyifC18.7 Diarrhea, unspecifiedComments: ??xifaxan
[2017-11-09 16:49] LABS: ABS Basophils 0 10^3/ul (0-0.2); ABS Eosinophils 0.3 10^3/ul (0-0.6); ABS Lymphocytes 2.3 10^3/ul (1.0-4.8); ABS Monocytes 0.3 10^3/ul (0-0.8); ABS Nucleated RBC 0 10^3/ul; Hematocrit 34 % (35-47); Hemoglobin 11.7 g/dl (12.0-16.0); Mean Corpuscular HGB Conc 35 g/dl (31-36); Mean Corpuscular Hemoglobin 32 pg (27-31); Mean Corpuscular Volume 94 fL (80-97); Mean Platelet Volume 8.1 um3 (7.4-10.4); Nucleated Red Blood Cells % 0.1; Platelet Count 229 10^3/ul (150-450); Red Cell Distribution Width 13 % (10.5-15)
--- NOTE | 2017-11-09 17:17 | ED ---
Abdominal Pain/Female - HPI Summary HPI Summary: This patient is a 32 year old F presenting to [facility] with a chief complaint of left sided ABD pain left sided for the last week. The patient rates the pain 7/ 10 in severity. Symptoms aggravated by movement and jarring motions. Patient reports chills, urinary frequency, low grade fever, and fatigue. Patient denies dysuria. Patient had a sharp transient left sided ABD pain this is the main reason for her visit today. Wagoner test done ten days ago as well as a lymes test. She was positive for mono but negative for lymes. She is on doxycycline currently. She also recently finished a course of Bactrim for a recent UTI. She saw her doctor for fatigue, arthralgia, and neck pain. Current menstruating, no intercourse in the last month. She has had nausea but she believes it is related to the use of doxy. - History of Current Complaint Chief Complaint: EDAbdPain Stated Complaint: MONO/ABD PAIN/NOT GETTING BETTER Time Seen by Provider: 11/09/17 16:33 Hx Obtained From: Patient Hx Last Menstrual Period: 07/04/14 Onset/Duration: Still Present Timing: Constant Severity Initially: Mild Severity Currently: Mild Pain Intensity: 3 Pain Scale Used: 0-10 Numeric Radiates: Yes Radiates to: LLQ Associated Signs and Symptoms: Positive: Nausea. Negative: Urinary Symptoms, Vomiting Allergies/Adverse Reactions: Allergies Allergy/AdvReac Type Severity Reaction Status Date / Time cefuroxime Allergy Rash Verified 11/09/17 14:00 mold Allergy Difficulty Verified 11/09/17 14:00 Breathing salmeterol [From Serevent] Allergy Rash Verified 11/09/17 14:00 shellfish derived Allergy Anaphylatic Verified 11/09/17 14:00 Shock Home Medications: Home Medications Albuterol inh POWDER (NF) [Proair Respiclick] 2 puff INH Q6HR PRN 11/09/17 [ History Confirmed 11/09/17] Cetirizine* [ZyrTEC 10 MG TAB*] 10 mg PO DAILY 11/09/17 [History Confirmed 11/09] EPINEPHrine [Epipen 2-Ankur] 0.3 mg IM ONCE PRN 11/09/17 [History Confirmed ] PMH/Surg Hx/FS Hx/Imm Hx Endocrine/Hematology History: Denies: Hx Diabetes, Hx Thyroid Disease Cardiovascular History: Denies: Hx Hypertension Respiratory History: Reports: Hx Asthma Denies: Hx Chronic Obstructive Pulmonary Disease (COPD) GI History: Denies: Hx Ulcer Neurological History: Denies: Hx CVA, Hx Dementia, Hx Developmental Delay, Hx Headaches - Surgical History Surgery Procedure, Year, and Place: facial reconstruction Infectious Disease History: No Infectious Disease History: Denies: Hx Hepatitis, Hx Human Immunodeficiency Virus (HIV), Traveled Outside the [place] in Last 30 Days - Family History Known Family History: Negative: Renal Disease, Seizure Disorder - Social History Occupation: Employed Full-time Lives: With Family Alcohol Use: Occasionally Substance Use Type: Reports: Marijuana Substance Use Comment - Amount & Last Used: 10/26 Smoking Status (MU): Never Smoked Tobacco Review of Systems Positive: Fever, Chills, Fatigue Negative: Erythema Negative: Sore Throat Negative: Chest Pain Negative: Shortness Of Breath, Cough Positive: Abdominal Pain, Nausea Positive: frequency. Negative: dysuria, hematuria Musculoskeletal: Other - neck pain Positive: Other - arthalgia . Negative: Myalgia, Edema Negative: Rash Neurological: Negative - dizziness All Other Systems Reviewed And Are Negative: Yes Physical Exam - Summary Physical Exam Summary: Constitutional: Well-developed, Well-nourished, Alert. (-) Distressed Skin: Warm, Dry HENT: Normocephalic; Atraumatic Eyes: Conjunctiva normal Neck: Musculoskeletal ROM normal neck. (-) JVD, (-) Stridor, (-) Tracheal deviation Cardio: Rhythm regular, rate normal, Heart sounds normal; Intact distal pulses; The pedal pulses are 2+ and symmetric. Radial pulses are 2+ and symmetric. (-) Murmur Pulmonary/Chest wall: Effort normal. (-) Respiratory distress, (-) Wheezes, (-) Rales Abd: Soft, mild left sided CVA TTP, LLQ/ suprapubic TTP, Musculoskeletal: (-) Edema Lymph: (-) Cervical adenopathy Neuro: Alert, Oriented x3 Psych: Mood and affect Normal Triage Information Reviewed: Yes Vital Signs On Initial Exam: Initial Vitals Temp Pulse Resp BP Pulse Ox 99.1 F 98 16 136/95 100 11/09/17 13:48 11/09/17 13:48 11/09/17 13:48 11/09/17 13:48 11/09/17 13:48 Vital Signs Reviewed: Yes Diagnostics - Vital Signs Vital Signs Temp Pulse Resp BP Pulse Ox 11/09/17 16:21 66 99 11/09/17 16:20 72 126/79 99 11/09/17 15:49 98.4 F 70 16 126/91 96 11/09/17 13:48 99.1 F 98 16 136/95 100 - Laboratory Lab Results: Lab Results 11/09/17 Range/Units 16:36 WBC 5.0 (3.5-10.8) 10^3/ul RBC 3.60 L (4.00-5.40) 10^6/ul Hgb 11.7 L (12.0-16.0) g/dl Hct 34 L (35-47) % MCV 94 (80-97) fL MCH 32 H (27-31) pg MCHC 35 (31-36) g/dl RDW 13 (10.5-15) % Plt Count 229 (150-450) 10^3/ul MPV 8.1 (7.4-10.4) um3 Neut % (Auto) 39.9 (38-83) % Lymph % (Auto) 46.0 (25-47) % Wagoner % (Auto) 6.4 (0-7) % Eos % (Auto) 7.0 H (0-6) % Baso % (Auto) 0.7 (0-2) % Absolute Neuts (auto) 2.0 (1.5-7.7) 10^3/ul Absolute Lymphs (auto) 2.3 (1.0-4.8) 10^3/ul Absolute Monos (auto) 0.3 (0-0.8) 10^3/ul Absolute Eos (auto) 0.3 (0-0.6) 10^3/ul Absolute Basos (auto) 0 (0-0.2) 10^3/ul Absolute Nucleated RBC 0 10^3/ul Nucleated RBC % 0.1 Result Diagrams: 11/09/17 16:36 11/09/17 16:36 Lab Statement: Any lab studies that have been ordered have been reviewed, and results considered in the medical decision making process. - CT CT ABD/Pelvis CT Interpretation Completed By: Radiologist - 1. 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 2. Otherwise negative CT abdomen/pelvis. The spleen is not enlarged. ED physician has reviewed this radiology report. Re-Evaluation - Re-Evaluation First Eval Re-Evaluation Time: 21:30 Change: Improved Comment: The patient is eating Serbian food at the bedside upon discharge. Abdominal Pain Fem Course/Dx - Course Course Of Treatment: This patient is a 32 year old F presenting to [facility] with a chief complaint of left sided ABD pain left sided for the last week. The patient rates the pain 7/10 in severity. Symptoms aggravated by movement and jarring motions. Patient reports chills, urinary frequency, low grade fever, and fatigue. Patient denies dysuria. Patient had a sharp transient left sided ABD pain this is the main reason for her visit today. Wagoner test done ten days ago as well as a lymes test. She was positive for mono but negative for lymes. She is on doxycycline currently. She also recently finished a course of Bactrim for a recent UTI. She saw her doctor for fatigue, arthralgia, and neck pain. Current menstruating, no intercourse in the last month. She has had nausea but she believes it is related to the use of doxy. CT ABD pelvis reveals, per radiologist, 1. Facet arthropathy of the lower lumbar spine with mild anterolisthesis of. L5 relative to S1. 2. Otherwise negative CT abdomen/ pelvis. The spleen is not enlarged. Dx abd pain. The CT was negative and I expect the pain is related to doxycycline use as well as OTC medications. Physical exam was unimpressive. Blood work and UA obtained. Patient will be discharged and f/u with PCP. The patient is agreeable with this plan. - Diagnoses Provider Diagnoses: Abdominal pain Discharge - Sign-Out/Discharge Documenting (check all that apply): Patient Departure - Discharge Plan Condition: Stable Disposition: HOME Prescriptions: Omeprazole CAP* [Prilosec CAP* 20 MG] 20 mg PO DAILY #14 cap. Ondansetron ODT TAB* [Zofran 4 MG Odt TAB*] 4 mg PO Q8H PRN #12 tab.odt PRN Reason: Nausea/Vomiting Patient Education Materials: Abdominal Pain (ED) Forms: *Work Release Referrals: Reece Leonardo [Primary Care Provider] - 2 Days Additional Instructions: RETURN TO THE EMERGENCY DEPARTMENT FOR CHANGING OR WORSENING SYMPTOMS - Attestation Statements Document Initiated by Scribe: Yes Documenting Scribe: Alexandr Hess Provider For Whom Scribe is Documenting (Include Credential): Jj Wilhelm MD Scribe Attestation: Alexandr Browning, scribed for Jj Wilhelm MD on 11/09/17 at 2130.
[2017-11-09 17:21] LABS: EGFR Non-African American 130.8 (>60)
[2017-11-09 17:30] LABS: Urine Appearance Clear; Urine Blood 1+ (Negative); Urine Color Straw; Urine Ketones Negative (Negative); Urine Protein Negative (Negative); Urine Red Blood Cell Trace(0-2/hpf) (Absent); Urine Specific Gravity 1.004 (1.010-1.030); Urine Urobilinogen Negative (Negative); Urine White Blood Cell Absent (Absent)
[2017-11-09] MEDS ORDERED: Iohexol 300* (CONTRAST) 10 ML SDV IV ONE (19:40)
--- NOTE | 2017-11-09 20:58 | RAD ---
EXAM: CT Abdomen and Pelvis With Intravenous Contrast EXAM DATE/TIME: Exam ordered 11/09/2017 8:15 PM CLINICAL HISTORY: 32 years old, female; Pain; Abdominal pain; Localized; Left upper quadrant (luq); Additional info: Luq/lower abd pain in setting of mononucleosis TECHNIQUE: Axial computed tomography images of the abdomen and pelvis with intravenous contrast. All CT scans at this facility use at least one of these dose optimization techniques: automated exposure control; mA and/or kV adjustment per patient size (includes targeted exams where dose is matched to clinical indication); or iterative reconstruction. Coronal and sagittal reformatted images were created and reviewed. CONTRAST: 91 mL of OM administered intravenously. COMPARISON: No relevant prior studies available. FINDINGS: Lung bases: Unremarkable. No mass. No consolidation. ABDOMEN: Liver: Unremarkable. No mass. Gallbladder and bile ducts: Unremarkable. No calcified stones. No ductal dilation. Pancreas: Unremarkable. No mass. No ductal dilation. Spleen: No splenomegaly. The spleen measures 7.4 cm. Adrenals: Unremarkable. No mass. Kidneys and ureters: Unremarkable. No solid mass. No hydronephrosis. Stomach and bowel: Unremarkable. No obstruction. No mucosal thickening. PELVIS: Appendix: A normal appendix is seen. Bladder: Unremarkable. No mass. Reproductive: Unremarkable as visualized. ABDOMEN and PELVIS: Intraperitoneal space: Unremarkable. No free air. No significant fluid collection. Bones/joints: Lower lumbar facet arthropathy with mild anterolisthesis of L5 relative to S1 and mild posterior protrusion of the disc. No acute fracture. No dislocation. Soft tissues: Unremarkable. Vasculature: Unremarkable. No abdominal aortic aneurysm. Lymph nodes: Unremarkable. No enlarged lymph nodes. IMPRESSION: 1. 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 2. Otherwise negative CT abdomen/pelvis. The spleen is not enlarged. To contact [facility] with a general question: [facility] - [phone] For direct physician to physician contact: Physician Hotline - [phone] [facility] ([facility] Facility ID #[id number])
[2017-11-09 22:04] VITALS: BP 116/69
== END 2017-11-09 21:55 | disposition home or self-care (01) ==
LOC: ED 13:37
DX: R10.9 Unspecified abdominal pain (principal); R11.0 Nausea; R50.9 Fever, unspecified; R53.83 Other fatigue
CPT/HCPCS: 36415; 74177; 80053; 81003; 81015; 83605; 83690; 84702; 85025; 86140; 99284; Q9967

== ENCOUNTER 2018-11-14 13:18 | Emergency (ER) | payer OTHER ==
--- OUTSIDE RECORDS SUMMARY | 2018-11-14 13:34 | XMS REPORT | Continuity of Care Document ---
:1985 External Reference #:[id number] Author Name Reece Leonardo PA Address [address] [place] [address] Problems Active Problems Provider Date Contraception care Reece Leonardo PA Onset: 09/14/2017 Note: Nexplanon placement and subsequent immediate removal due to extreme pain Infectious mononucleosis Reece Leonardo PA Onset: 11/02/2017 Note: h/o Acute infection 2003 Social History Type Date Description Comments Sex Unknown Tobacco Use Start: Unknown Never Smoked Cigarettes ETOH Use Occasionally consumes alcohol Recreational Drug Use Denies Drug Use Tobacco Use Start: Unknown Patient has never smoked Smoking Status Reviewed: 11/09/18 Patient has never smoked Allergies, Adverse Reactions, Alerts Active Allergies Reaction Severity Comments Date Ceftin 02/24/2004 Sudafed 02/24/2004 Serevent Rash 09/27/2005 Shellfish-derived vomiting and throat carries epipen for 01/26/2009 Products closing, delayed but this severe Medications Active Medications SIG Qnty Indications Ordering Provider Date Azithromycin 1 by mouth 3tabs J15.9 Yvonne Epperson 11/09/2018 500mg every day MD Simran Tablets Naproxen 1 by mouth 180tabs M79.1 Yvonne Epperson 01/03/2018 500mg Tablets twice a day as MD Simran needed A69.20 Fluticasone 1 spray b/l nostrils 1units 461.0 Yvonne Epperson 06/15/2017 Propionate twice a day, then MD Simran 50mcg/Act may wean to 1 spray Suspension everyday, until sx resolution Proair HFA 2 puffs every 6 8.500gm J45.20 Yvonne Epperson 04/12/2017 108(90Base) hours as needed MD Simran mcg/Act Aerosol wheezing/sob [may substitute covered med] Cetirizine HCL 1 by mouth every day 90tabs Z11.8 Yvonne Epperson 2017 10mg MD Simran Tablets Epinephrine as needed 2units Yvonne Epperson 08/01/2016 0.3mg/0.3ML MD Simran Solution Auto-Inject History Medications Nitrofurantoin Monohyd 1 by mouth 10capChanelle Alexander 05/31/2018 - Macro twice a day C, RN MS [facility] 06/05/2018 100mg Capsules Medications Administered in Office Medication SIG Qnty Indications Ordering Provider Date PPD Nurses Schedule Raquel 01/04/2011 Injection Depo Medrol 40 MG Yvonne Epperson MD 12/19/2005 Injection Immunizations CPT Code Status Date Vaccine Lot # [id number] Given 11/26/2016 Tdap (Adacel) Ages 7 And Above Only 42085 Given 09/24/2007 Tdap (Adacel) Ages 7 And Above Only 59167 Given 09/24/2007 Tdap (Adacel) Ages 7 And Above Only [id number] 62558 Given 07/28/2003 MMR Virus Immunization 42557 Given 12/03/2001 Afluria Or Fluvirin Flu Vac Intramuscular 42437 Given 05/09/2000 Hepatitis B Vac Ped/Adolescent 3 Dose Schedule 41074 Given 11/03/1999 Hepatitis B Vac Ped/Adolescent 3 Dose Schedule Vital Signs Date Vital Result Comment 11/09/2018 10:56am Weight 147.00 lb Heart Rate 92 /min BP Systolic 130 mmHg BP Diastolic 79 mmHg Height 65.75 inches 5'5.75" BMI (Body Mass Index) 23.9 kg/m2 05/30/2018 7:53am Weight 153.12 lb Heart Rate 65 /min BP Systolic 112 mmHg BP Diastolic 69 mmHg Height 65.75 inches 5'5.75" BMI (Body Mass Index) 24.9 kg/m2 Results Test Date Facility Test Result H/L Range Note Chlamydia & GC, 05/30/2018 [facility] Chlamydia NOT DETECTED Not Detected Dna-[facility] GC NOT DETECTED Not Detected Affirm 05/30/2018 [facility] Trichomonas Vaginalis Negative Negative Gardnerella Vaginalis Negative Negative Corin Species Negative Negative Procedures Description No Information Available Medical Devices Description No Information Available Encounters Type Date Location Provider Dx Diagnosis Office Visit 05/30/2018 7:45a Reece Chowdhury PA R35.0 Frequency of micturition A69.20 Lyme disease, unspecified N76.0 Acute vaginitis Assessments Date Code Description Provider 11/09/2018 J15.9 Unspecified bacterial pneumonia Reece Leonardo PA 11/09/2018 J45.20 Mild intermittent asthma, uncomplicated Reece Leonardo PA 05/30/2018 Z11.3 Encounter for screening for infections with a [facility] predominantly sexual mode of transmission 05/30/2018 R35.0 Frequency of micturition Reece Leonardo PA 05/30/2018 Z11.8 Encounter for screening for other infectious and [facility] parasitic diseases 05/30/2018 A69.20 Lyme disease, unspecified Reece Leonardo PA 05/30/2018 N76.0 Acute vaginitis Reece Leonardo PA 05/30/2018 N76.0 Acute vaginitis [facility] Plan of Treatment 11/09/2018 - Reece Leonardo PAJ15.9 Unspecified bacterial pneumoniaNew Medication :Azithromycin 500 mg - 1 by mouth every dayComments:will send in Rx for Abx and if not continuing to improve, can fill.J45.20 Mild intermittent asthma, uncomplicatedComments:symbicort sample given to use with abx Functional Status Description No Information Available Mental Status Description No Information Available Referrals Description No Information Available
[2018-11-14 15:11] VITALS: BP 125/82
--- NOTE | 2018-11-14 16:12 | ED ---
Complex/Multi-Sys Presentation - HPI Summary HPI Summary: Pt. is a 33 y.o female who presents to the ER for possible adverse rxn to levaquin. Pt. states she was seen at an outside last night and dx with pneumonia clinically. She was placed on prednisone, levaquin, and ventolin. Pt. states she took medication last night and when she awoke today she noticed mild blurry vision. She notes it lasted for about two hours and resolved. Pt. denies rash, pruritis, SOB, cp, facial edema, difficulty breathing/swallowing. Pt. denies h.a, numbness, tingling or weakness. Pt. has numerous mediation allergies. Sxs are mild in severity. No current modifying factors. - History Of Current Complaint Chief Complaint: EDAllergicReaction Time Seen by Provider: 11/14/18 14:40 Hx Obtained From: Patient - Allergies/Home Medications Allergies/Adverse Reactions: Allergies Allergy/AdvReac Type Severity Reaction Status Date / Time cefuroxime [From Ceftin] Allergy Rash Verified 11/14/18 13:28 doxycycline Allergy Headache Verified 11/14/18 13:28 mold Allergy Difficulty Verified 11/09/17 14:00 Breathing salmeterol [From Serevent] Allergy Rash Verified 11/09/17 14:00 shellfish derived Allergy Anaphylatic Verified 11/09/17 14:00 Shock PMH/Surg Hx/FS Hx/Imm Hx Previously Healthy: Yes Endocrine/Hematology History: Denies: Hx Diabetes, Hx Thyroid Disease Cardiovascular History: Denies: Hx Hypertension Respiratory History: Reports: Hx Asthma Denies: Hx Chronic Obstructive Pulmonary Disease (COPD) GI History: Denies: Hx Ulcer History: Denies: Hx Renal Disease Neurological History: Denies: Hx CVA, Hx Dementia, Hx Developmental Delay, Hx Headaches - Surgical History Surgery Procedure, Year, and Place: facial reconstruction - Immunization History Date of Tetanus Vaccine: 2016 Immunizations Up to Date: Yes Infectious Disease History: No Infectious Disease History: Denies: Hx Hepatitis, Hx Human Immunodeficiency Virus (HIV), Traveled Outside the [place] in Last 30 Days - Family History Known Family History: Positive: Non-Contributory Negative: Renal Disease, Seizure Disorder - Social History Occupation: Unemployed Lives: With Family Alcohol Use: Occasionally Substance Use Type: Reports: None Substance Use Comment - Amount & Last Used: 10/26 Smoking Status (MU): Never Smoked Tobacco Review of Systems Constitutional: Negative Positive: Blurred Vision - Resolved ENT: Negative Cardiovascular: Negative Respiratory: Negative Negative: Shortness Of Breath Skin: Negative Negative: Rash Neurological: Negative Negative: Headache, Weakness, Paresthesia, Numbness All Other Systems Reviewed And Are Negative: Yes Physical Exam Triage Information Reviewed: Yes Vital Signs On Initial Exam: Initial Vitals Temp Pulse Resp BP Pulse Ox 98.7 F 73 16 129/83 99 11/14/18 13:19 11/14/18 13:19 11/14/18 13:19 11/14/18 13:19 11/14/18 13:19 Vital Signs Reviewed: Yes Appearance: Positive: Well-Appearing - Pt. sitting up in bed in NAD. Mother present. Skin: Positive: Warm, Dry Head/Face: Positive: Normal Head/Face Inspection Eyes: Positive: Normal, EOMI, SARAI, Conjunctiva Clear ENT: Positive: Pharynx normal, TMs normal, Uvula midline. Negative: Muffled voice, Hoarse voice Neck: Positive: Supple Respiratory/Lung Sounds: Positive: Clear to Auscultation, Breath Sounds Present. Negative: Rales, Rhonchi, Stridor, Wheezes Cardiovascular: Positive: Normal, RRR Musculoskeletal: Positive: Normal, Strength/ROM Intact Neurological: Positive: Normal, CN Intact II-III Psychiatric: Positive: Affect/Mood Appropriate Procedures - Sedation Patient Received Moderate/Deep Sedation with Procedure: No Diagnostics - Vital Signs Vital Signs Temp Pulse Resp BP Pulse Ox 11/14/18 15:10 97.1 F 71 17 125/82 96 11/14/18 13:19 98.7 F 73 16 129/83 99 - Laboratory Lab Statement: Any lab studies that have been ordered have been reviewed, and results considered in the medical decision making process. Complex Multi-Symp Course/Dx Course Of Treatment: Pt. presenting with questionable medication side effect. Sxs have since resolved. Exam is unremarkable. No neuro deficits. Pt. re- assured. Will have her continue rx medication tonight. Advised if sxs return to dc. To return to ER for rash, swelling, sob, difficulty swallowing/breathing. Pt. understands and agrees with plan. - Diagnoses Provider Diagnoses: Adverse drug effect Discharge ED - Sign-Out/Discharge Documenting (check all that apply): Patient Departure - Discharge Plan Condition: Improved Disposition: HOME Patient Education Materials: Adverse Drug Reaction (ED) Referrals: Reece Leonardo [Primary Care Provider] - Additional Instructions: Schedule a follow up appointment with your PCP in 2-3 days Continue prescribed medication as directed Discontinue medication and return to ER for rash, facial swelling, difficulty breathing/swallowing or if concerned - Billing Disposition and Condition Condition: IMPROVED Disposition: Home
== END 2018-11-14 15:19 | disposition home or self-care (01) ==
LOC: ED 13:18
DX: H53.8 Other visual disturbances (principal); T36.8X5A Adverse effect of other systemic antibiotics, initial encounter; Y92.9 Unspecified place or not applicable
CPT/HCPCS: 99281